=== PATIENT | female | born 1960 | race Caucasian/White ===

== ENCOUNTER 2016-08-22 12:53 | Observation (INO) | payer BC ==
[2016-08-22 13:52] LABS: Hematocrit 42.2 % (37.0-47.0); Hemoglobin 13.9 gm/dL (12.5-16.0); Mean Cell Volume 98.6 fl (78-100); Mean Corpuscular Hemoglobin 32.5 pg (27-31); Mean Corpuscular Hgb Conc 32.9 g/dl (32-36); Mean Platelet Volume 10.8 fl (6.0-9.5); Neutrophil # 6.4 K/mm3 (1.3-6.0); Neutrophil % 73.8 % (42-75.0); Platelet Count 393 K/mm3 (150-450); Red Blood Count 4.28 M/mm3 (4.2-5.4); Red Cell Distribution Width 12.7 % (11.5-14.0); White Blood Count 8.7 K/mm3 (4.0-10.5)
[2016-08-22 14:06] LABS: Albumin * 3.7 gm/dl (3.4-5.0); Anion Gap 12.4 mmol/L (6.8-13.8); BUN/Creatinine Ratio 14.3 (9.0-21.6); Bilirubin, Total 0.4 mg/dL (0.0-1.1); Ca. Corrected For Albumin 9.3 mg/dL (8.4-10.2); Calcium * 9.4 mg/dL (7.9-10.9); Potassium 4.4 mmol/L (3.4-4.6); Total Protein 7.6 gm/dL (6.2-8.2)
[2016-08-22] MEDS ORDERED: NORMAL SALINE 1,000 ML IV ONE ×2 (16:25→16:31)
[2016-08-22] MEDS ORDERED: PROMETHAZINE HCL 25 MG in DEXTROSE 5 % IN WATER 50 ML IV ONE ×2 (16:31)
[2016-08-22] MEDS ORDERED: DICYCLOMINE HCL 10 MG/ML AMPUL IM ONE ×2 (16:32→17:14)
--- NOTE | 2016-08-22 16:41 | ERNOTE ---
<Alesha Morrissey - Last Filed: 08/22/16 21:57> Medical Problem HPI - Narrative Date of Service: 08/22/16 - General Chief Complaint: Nausea/Vomiting Time Seen by Provider: 08/22/16 16:25 Source: patient Exam Limitations: no limitations - Immun/Allergies/Home Medications Immunizations: IMMUNIZATION HX Immunizations Up to Date Yes History of Influenza Vaccine No Hx Pneumococcal Vaccination No Allergies/Adverse Reactions: Allergies Sulfa (Sulfonamide Antibiotics) Allergy (Intermediate, Verified 08/22/16 13:19) Hives Home Medications: HOME MEDICATIONS Atenolol [Tenormin] 25 mg PO DAILY 07/24/13 [Last Taken Unknown] Diclofenac Sodium [Voltaren] 75 mg PO BID 08/22/16 [Last Taken Unknown] Duloxetine HCl [Cymbalta] 30 mg PO DAILY 08/22/16 [Last Taken Unknown] Gabapentin [Neurontin] 300 mg PO HS 08/22/16 [Last Taken Unknown] - History of Present History Narrative: Pt. comes in with c/o BLQ pain and nausea and vomiting along with dry heaving for one day. Pt. states that she has had these symptoms recently as far back as 2 weeks but it has been intermittent but now is constant. Pt. states that she tried her chronic pain medications for the pain without relief. Pt. denies any fevers, SOB, CP, alleviating factors, or aggravating factors. Review of Systems - Review of Systems Constitutional: Present: fatigue. Absent: fever, chills, weakness, malaise EYE: Present: no symptoms reported ENT: Present: no symptoms reported Respiratory: Present: no symptoms reported. Absent: shortness of breath, cough , wheezing Cardiology: Present: no symptoms reported Gastrointestinal/Abdominal: Present: nausea, vomiting, diarrhea, abdominal pain Genitourinary: Present: no symptoms reported. Absent: frequency, decreased urinary output Musculoskeletal: Present: no symptoms reported. Absent: back pain, joint pain Skin: Present: no symptoms reported. Absent: rash, change in color Neurological: Present: no symptoms reported. Absent: headache, dizziness/light- headedness, numbness, tingling All Other Systems: All systems neg except as marked - Patient's Past Medical History Patient History - Medical: Anxiety, Depression, Fibromyalgia, Migraines, Osteoarthritis Patient History - Cancer: No Hx of Cancer Patient History - Surgical Procedures: Appendectomy, Cholecystectomy, Total Knee Replacement LMP (females 10-50): Menopausal - Social History Living Situations: home Smoking Status: Never smoker Alcohol Use: none Drug Use: none Physical Exam - Physical Exam General Appearance: Present: wd/wn, alert, no apparent distress Eye Exam: Normal inspection: bilateral, PERRL: bilateral, EOMI: bilateral Ears, Nose, Throat: Present: normal ENT inspection, hearing grossly normal, normal pharynx Neck: Present: normal inspection, nontender. Absent: lymphadenopathy (R), lymphadenopathy (L) Respiratory: Present: no respiratory distress, normal breath sounds, no accessory muscle use, chest nontender, lungs clear Cardiovascular/Chest: Present: regular rate, rhythm, no murmur, normal peripheral pulses Gastrointestinal/Abdominal: Present: normal bowel sounds, nontender, nondistended, soft, no organomegaly Back Exam: Present: normal inspection, normal range of motion, no CVA tenderness , no vertebral tenderness Extremity Exam: Present: normal inspection, non-tender, no edema, normal range of motion Neurological Exam: Present: alert, oriented, normal mood/affect, no motor/ sensory deficits, duplicating machine servicer II-XII nml as tested, normal cerebellar test Skin Exam: Present: normal color, warm/dry. Absent: pallor, skin rash ED Progress - Results and Orders Patient's Lab Results:: I have reviewed the patient's lab results. - Vital Signs Patient's Vital Signs:: I have reviewed the patient's vital signs. Vital Signs: Vital Signs 08/22/16 13:12 Temperature 36.8 C Pulse Rate 79 Respiratory 16 Rate Blood Pressure 152/97 O2 Sat by Pulse 95 Oximetry - X-Ray X-Ray #1 X-Ray: abdomen Interpretation: Interp. by co X-ray Comments: no obstruction no free air small bowel rugae prominent - Progress/Reassessment Chief Complaint: Nausea/Vomiting Progress:: Unchanged - Transfer of Care Physician Sign Out: Alesha Morrissey Receiving Physician: Eduardo Camacho Pending Results: CT/MRI results Expected Disposition: Discharge Departure - Departure Clinical Impression: Dehydration, Acute gastroenteritis, Acute colitis, UTI (urinary tract infection ) with pyuria UTI (urinary tract infection) Qualifiers: Urinary tract infection type: acute cystitis Hematuria presence: with hematuria Qualified Code(s): N30.01 - Acute cystitis with hematuria UTI (urinary tract infection) Qualifiers: Urinary tract infection type: acute cystitis Hematuria presence: with hematuria Qualified Code(s): N30.01 - Acute cystitis with hematuria UTI (urinary tract infection) Qualifiers: Urinary tract infection type: acute cystitis Hematuria presence: with hematuria Qualified Code(s): N30.01 - Acute cystitis with hematuria Disposition: [facility] Condition: Fair Instructions: Colitis Referrals: Mike Palafox DO [Primary Care Provider] - <Eduardo Camacho - Last Filed: 08/23/16 01:26> Medical Problem HPI - Immun/Allergies/Home Medications Immunizations: IMMUNIZATION HX Immunizations Up to Date Yes History of Influenza Vaccine No Hx Pneumococcal Vaccination No ED Progress - Vital Signs Vital Signs: Vital Signs 08/22/16 08/22/16 08/23/16 19:28 20:47 00:19 Temperature 36.8 C Pulse Rate 78 78 85 Respiratory 16 16 14 Rate Blood Pressure 186/87 149/70 131/64 O2 Sat by Pulse 99 100 98 Oximetry - CT/Ultrasound CT/Ultrasound Narrative: CT abd/pelvis with IV and po contrast: transverse and sigmoid inflammation consistent with infectious colitis or IBD. Atrophic R kidney and enlarged left kidney. - Progress/Reassessment Progress:: Improved - 0100 Plan - Plan Plan: Admit to acute, IV steroids, Cipro and Flagyl. NPO. IVF. discussed CT results with patient. Advised [place] of plan.
[2016-08-22 17:29] LABS: Urine Appearance Slightly Cloudy; Urine Bilirubin Negative (NEGATIVE); Urine Color Yellow
[2016-08-22 17:30] LABS: Urine Nitrite Positive (NEGATIVE); Urine Protein Negative (NEGATIVE); Urine Urobilinogen Normal (NORMAL)
[2016-08-22 17:31] LABS: Urine Bacteria 4+; Urine Blood 50 /ul (NEGATIVE); Urine Ketone 5 mg/dL (NEGATIVE); Urine RBC 0-5 /hpf (0-5)
[2016-08-22] MEDS ORDERED: DIATRIZOATE MEGLU/DIATRIZO SOD 30 ML BTL PO ONE (21:57)
[2016-08-22] MEDS ORDERED: DIATRIZOATE MEGLU/DIATRIZO SOD 30 ML BTL ONE (21:58)
[2016-08-22 22:13] LABS: Hemoglobin 13.5 gm/dL (12.5-16.0)
[2016-08-22 22:23] LABS: Prothrombin Time (Patient) 10.4 Seconds (9.4-11.4)
[2016-08-22 22:24] LABS: Partial Thrombolplastin Time 25.1 Seconds (24-32)
[2016-08-23] MEDS ORDERED: METHYLPREDNISOLONE SOD SUCC/PF 40 MG/ML VIAL IV ONE (01:13)
[2016-08-23] MEDS: CIPROFLOXACIN LACTATE/D5W 400 MG/200 ML BAG IV SCH ×3 (01:46→14:37)
--- NOTE | 2016-08-23 03:14 | HP ---
Chief Complaint - Chief Complaint Date of Service: 08/23/16 Time of Service: 03:13 Chief Complaint: diarrhea History of Present Illness: Pt is a 56 year old female pt of Dr. Palafox with PMH significant for: fibromyalgia, depression, migranes, HTN, and anxiety. Who started having loose stool 2 weeks ago. She states since then she has had maybe 2 formed stool. They have been brown in color without evidence of any bleeding noted. She has been having mid-epigastric pain which comes and goes and feels like someone is twisting her insides. She rates this a 9/10, pain is usually worse before a BM followed by an immediate urgency to have a BM, then the pain is relived for a little while. Has not been taking anything for it at home, thought that she just had the stomach virus. Daughter and grandson + with influenza B. +nausea, dry heaves all day today. While being seen in the ER had a BM with maroon colored blood, +occult blood. Denies ever having anything like this before. + chills, no fevers report. Denies cough, lightheadedness, palpations, CP, sore throat, or SOB. CT abdomen in the ER showed transverse and sigmoid inflammation consistent with IBD or infectious colitis. Atrophic right kidney and enlarged left kidney. Laboratory findings were as followed: h/h 13.5/41, K+4.4, WBC 8.7, Na+144, chloride 107, BUN/Creat 21/1.47, UA +-culture pending, c-diff negative. She will be admitted to in patient for GIB due to gastritis and UTI requiring IV steroids and IV antibiotics. - Patient's Past Medical History Patient History - Medical: Anxiety, Depression, Fibromyalgia, Migraines, Osteoarthritis Patient History - Cardiac/Respiratory: Hypertension Patient History - Cancer: No Hx of Cancer Patient History - Surgical Procedures: Appendectomy, Cholecystectomy, Other - bariatic sleeve-2014 Patient History - Other: None LMP (females 10-50): Menopausal - Family History Father Family History - Medical: Family History - Cardiac/Respiratory: No pertinent hx Family History - Cancer: Prostate Mother Family History - Medical: , Dementia Family History - Cardiac/Respiratory: No pertinent hx Family History - Cancer: Throat, Other - tongue Grandfather-Paternal Family History - Medical: Family History - Cardiac/Respiratory: Myocardial Infarction Grandfather-Maternal Family History - Cardiac/Respiratory: Myocardial Infarction - Social History Living Situations: spouse Does anyone smoke in the home?: No Smoking Status: Never smoker Have you smoked in the past 12 months: No Do you dip or chew tobacco: No Patient requests Smoking Cessation Consult: No Initiate information on Smoking Cessation: No Alcohol Use: none Drug Use: none - Immunizations Immunizations Up to Date: Yes Hx Pneumococcal Vaccination: No History of Influenza Vaccine: No Review Of Systems (GEN) - Review of Systems Generalized/Overall Review: Present: No Symptoms Reported EENTM: Present: No Symptoms Reported Respiratory: Present: No Symptoms Reported Cardiac: Present: No Symptoms Reported Abdominal: Present: Abdominal Pain - cramping-mid epigastric Genitourinary: Present: No Symptoms Reported Musculoskeletal: Present: No Symptoms Reported Neurological: Present: No Symptoms Reported Skin: Present: No Symptoms Reported Allergies/Adverse Reactions: Allergies Allergy/AdvReac Type Severity Reaction Status Date / Time Sulfa (Sulfonamide Allergy Intermediate Hives Verified 08/23/16 02:57 Antibiotics) Home Medications: HOME MEDICATIONS Atenolol [Tenormin] 25 mg PO DAILY 07/24/13 [Last Taken Unknown] Diclofenac Sodium [Voltaren] 75 mg PO BID 08/22/16 [Last Taken Unknown] Duloxetine HCl [Cymbalta] 30 mg PO DAILY 08/22/16 [Last Taken Unknown] Gabapentin [Neurontin] 300 mg PO HS 08/22/16 [Last Taken Unknown] Cyanocobalamin (Vitamin B-12) [B-12] 1,000 mcg PO DAILY 08/23/16 [Last Taken Unknown] Multivitamin [One Daily Essential] 1 each PO DAILY 08/23/16 [Last Taken Unknown] Exam - Exam Vital Signs: Vital Signs - Last Taken Temp 37.0 C 08/23/16 02:44 Pulse 89 08/23/16 02:44 Resp 18 08/23/16 02:44 BP 142/71 08/23/16 02:44 Pulse Ox 96 RA 08/23/16 02:44 Constitutional: Present: Alert, Oriented x3, Cooperative, No distress ENT Exam: Present: normal ENT inspection, hearing grossly normal Eye Exam: bilateral eye: normal inspection, PERRL Back Exam: Present: normal inspection Respiratory: Present: chest non-tender, normal breath sounds, no respiratory distress, no accessory muscle use, decreased breath sounds Cardiovascular/Chest: Present: normal peripheral pulses, regular rate, rhythm, no chest tenderness, no edema, no murmur Peripheral Pulses: dorsalis-pedis (R): 2+, dorsalis-pedis (L): 2+, radial (R): 2 +, radial (L): 2+ Abdomen: Present: Normal bowel sounds, soft, nontender, nondistended, no rebound tenderness, no hepatospenomegaly, no masses Extremity: Present: normal range of motion, non-tender, normal inspection, no pedal edema, no calf tenderness, normal capillary refill Skin Exam: Present: normal color, warm/dry, no cyanosis Lymphatic: Present: no adenopathy Neurologic: Present: no motor/sensory deficits, alert, normal mood/affect, oriented x 3 Appearance: Present: appropriate appearance, appropriate insight, neat, no memory impairment Eye contact: Present: cooperative, good eye contact, normal speech Thoughts: Present: normal thought pattern, no apparent hallucination Diagnostic Studies: Laboratory Results Laboratory Tests 08/22/16 08/22/16 08/22/16 13:48 13:48 17:17 WBC 8.7 Hgb 13.9 Hct 42.2 Plt Count 393 PT INR (Anticoag Therapy) PTT (Lynn) Sodium 144 H Potassium 4.4 Chloride 107 H Anion Gap 12.4 BUN 21 D Creatinine 1.47 H Est GFR (Non-Af Amer) 39 L D Calcium 9.4 Total Bilirubin 0.4 AST 22 ALT 24 Alkaline Phosphatase 101 Total Protein 7.6 Albumin 3.7 Urine Blood 50 H Urine Nitrate Positive H Ur Leukocyte Esterase 25 H Urine WBC 5-10 H Urine Bacteria 4+ H Stool Occult Blood Stl C.difficile Tox A&B 08/22/16 08/22/16 08/22/16 20:40 20:40 22:05 WBC Hgb Hct Plt Count PT 10.4 INR (Anticoag Therapy) 1.00 PTT (Ele) 25.1 Sodium Potassium Chloride Anion Gap BUN Creatinine Est GFR (Non-Af Amer) Calcium Total Bilirubin AST ALT Alkaline Phosphatase Total Protein Albumin Urine Blood Urine Nitrate Ur Leukocyte Esterase Urine WBC Urine Bacteria Stool Occult Blood Positive H Stl C.difficile Tox A&B Negative Assessment/Plan - Assessment/Plan (1) Acute colitis Assessment: Pt with 2 week history of diarrhea. Denies fever/chills, no evidence on leukocytosis on chemistries, will withhold on PO antibiotics as this does not appear to be infectious colitis at this time. Will keep NPO for bowel rest and hydrate overnight. If remains without n/v can trial CL tomorrow. -Solumedrol 60mg Q6H -NPO -MIVF D5.45@125ml/hr -Stool for ova and parasites -CRP/ESR, procalcitonin in am -CMP/CBC in am Problem: Acute (2) Dehydration Assessment: Volume depletion causing MEETA related to 2 week history of diarrhea. Will repeat labs in the am. Provide IV hydration, limit nephrotoxic drugs. -D5.45 @125ml/hr -CMP in am Problem: Acute (3) UTI (urinary tract infection) Assessment: Urine culture pending -Cipro 400mg Q12H Problem: Acute Qualifiers: Urinary tract infection type: acute cystitis Hematuria presence: with hematuria Qualified Code(s): N30.01 - Acute cystitis with hematuria (4) GIB (gastrointestinal bleeding) Assessment: +occult stool in ER, most likely the result from inflammation and colitis in the GI tract. ERMD spoke with Dr. Rock. If h/h drops or pt continues to bleed will consider scope for further evaluation. I suspect that once we treat her colitis with steroids and GI rest the bleeding should resolve. C-Diff negative. -Protonix 40mg IV Q24H -NPO -MIVF d5.45 @125ml.hr -Hold Voltaren Problem: Acute (5) HTN (hypertension) Assessment: Stable -Continue Atenolol 25mg QD Problem: Chronic
[2016-08-23] MEDS ORDERED: ONDANSETRON HCL/PF 2 MG/ML VIAL IV PRN (03:19)
[2016-08-23] MEDS ORDERED: METHYLPREDNISOLONE SOD SUCC 60 MG in WATER FOR INJ.,BACTERIOSTATIC 0 ML IV SCH (03:30)
[2016-08-23] MEDS ORDERED: PANTOPRAZOLE SODIUM 40 MG in NORMAL SALINE 100 ML IV SCH (03:30)
[2016-08-23] MEDS: DEXTROSE 5%-0.5 NORMAL SALINE 1,000 ML IV PRN ×3 (03:57→22:22)
[2016-08-23] MEDS: PANTOPRAZOLE SODIUM 40 MG in NORMAL SALINE 100 ML IV SCH (03:57)
[2016-08-23 06:20] LABS: Hematocrit 38.8 % (37.0-47.0); Hemoglobin 12.9 gm/dL (12.5-16.0); Mean Cell Volume 98.2 fl (78-100); Mean Corpuscular Hemoglobin 32.7 pg (27-31); Mean Corpuscular Hgb Conc 33.2 g/dl (32-36); Mean Platelet Volume 10.9 fl (6.0-9.5); Neutrophil # 7.2 K/mm3 (1.3-6.0); Neutrophil % 88.2 % (42-75.0); Platelet Count 337 K/mm3 (150-450); Red Blood Count 3.95 M/mm3 (4.2-5.4); Red Cell Distribution Width 12.7 % (11.5-14.0); White Blood Count 8.2 K/mm3 (4.0-10.5)
[2016-08-23 06:28] LABS: Prothrombin Time (Patient) 10.5 Seconds (9.4-11.4)
[2016-08-23 06:31] LABS: Albumin * 3.2 gm/dl (3.4-5.0); Anion Gap 12.7 mmol/L (6.8-13.8); BUN/Creatinine Ratio 9.7 (9.0-21.6); Bilirubin, Total 0.3 mg/dL (0.0-1.1); CRP 2.6 mg/dL (0.0-0.9); Calcium * 8.7 mg/dL (7.9-10.9); Carbon Dioxide 25.4 mmol/L (24-32.6); Potassium 4.1 mmol/L (3.4-4.6); Total Protein 6.8 gm/dL (6.2-8.2)
[2016-08-23 06:36] LABS: INR 1.01 INR (0.90-1.10); Partial Thrombolplastin Time 27.2 Seconds (24-32)
[2016-08-23] MEDS ORDERED: METHYLPREDNISOLONE SOD SUCC/PF 125 MG/2 ML VIAL IV SCH (08:00)
[2016-08-23] MEDS: METHYLPREDNISOLONE SOD SUCC 60 MG in WATER FOR INJ.,BACTERIOSTATIC 0 ML IV SCH ×3 (08:41→20:21)
[2016-08-23] MEDS: ATENOLOL 25 MG TABLET PO SCH (08:42)
[2016-08-23] MEDS: DULoxetine HCL 30 MG CAPSULE.SA PO SCH (08:42)
[2016-08-23] MEDS: CYANOCOBALAMIN 1,000 MCG TABLET PO SCH (08:42)
[2016-08-23] MEDS: MULTIVITAMINS 1 CAP CAPSULE PO SCH (08:42)
[2016-08-23] MEDS ORDERED: FLU VACC QS2016-17 36MOS UP/PF 60 MCG/0.5 ML DISP.SYRIN IM ONE (09:00)
[2016-08-23] MEDS ORDERED: GABAPENTIN 300 MG CAPSULE PO SCH (21:00)
[2016-08-24] MEDS: CIPROFLOXACIN LACTATE/D5W 400 MG/200 ML BAG IV SCH (02:20)
[2016-08-24] MEDS: DEXTROSE 5%-0.5 NORMAL SALINE 1,000 ML IV PRN (07:30)
[2016-08-24] MEDS: PANTOPRAZOLE SODIUM 40 MG in NORMAL SALINE 100 ML IV SCH (08:58)
[2016-08-24] MEDS: ATENOLOL 25 MG TABLET PO SCH (08:58)
[2016-08-24] MEDS: MULTIVITAMINS 1 CAP CAPSULE PO SCH (08:59)
[2016-08-24] MEDS: CYANOCOBALAMIN 1,000 MCG TABLET PO SCH (08:59)
[2016-08-24] MEDS: DULoxetine HCL 30 MG CAPSULE.SA PO SCH (08:59)
[2016-08-24 10:04] LABS: Hematocrit 38.4 % (37.0-47.0); Hemoglobin 12.5 gm/dL (12.5-16.0); Mean Cell Volume 100.5 fl (78-100); Mean Corpuscular Hemoglobin 32.7 pg (27-31); Mean Corpuscular Hgb Conc 32.6 g/dl (32-36); Mean Platelet Volume 10.8 fl (6.0-9.5); Neutrophil # 14.2 K/mm3 (1.3-6.0); Neutrophil % 86.4 % (42-75.0); Platelet Count 354 K/mm3 (150-450); Red Blood Count 3.82 M/mm3 (4.2-5.4); White Blood Count 16.4 K/mm3 (4.0-10.5)
[2016-08-24 10:20] LABS: Anion Gap 13.1 mmol/L (6.8-13.8); BUN/Creatinine Ratio 11.4 (9.0-21.6); Bilirubin, Total 0.2 mg/dL (0.0-1.1); Ca. Corrected For Albumin 9.3 mg/dL (8.4-10.2); Calcium * 8.8 mg/dL (7.9-10.9); Carbon Dioxide 24.6 mmol/L (24-32.6); Potassium 3.7 mmol/L (3.4-4.6); Total Protein 6.5 gm/dL (6.2-8.2)
[2016-08-24 10:49] VITALS: BP 142/76
--- NOTE | 2016-08-24 11:52 | DS ---
(1) Acute gastroenteritis Diagnosis(s): Rosey is a 56 yo female admitted with abdominal pain with hemoccult positive. She was admitted for possible GI bleed. She was made NPO and started on PPI. CT was performed which showed colitis. UA was positive for UTI. She was started on Ciprofloxacin for UTI and possible colitis. Hemoglobin was monitored and stable. She had no further bloody stools. She is feeling much better and will be discharged to home. Suspect she has acute gastritis vs gastroenteritis. Will treat with PPI and will continue Cipro for colitis and UTI. Problem: Acute (2) UTI (urinary tract infection) Problem: Acute Qualifiers: Urinary tract infection type: acute cystitis Hematuria presence: with hematuria Qualified Code(s): N30.01 - Acute cystitis with hematuria Procedures Performed: none Discharge Disposition: Home self care Disposition: Home self-care Condition: Good Discharge Activity: Activity as tolerated Discharge Diet: General/regular food Referrals: Mike Palafox DO [Primary Care Provider] - One Week Problem Oriented Discharge Instructions to Patient/Family: Gastritis, Adult, [id number], Urinary Tract Infection, Adult, [id number], Colitis Additional Patient Instructions (free text): Do not take any NSAIDs due to gastritis, gastrointestinal bleed. Specifically do not take aspirin, aleve, ibuprofen, prednisone, meloxicam, or diclofenac. Follow up with Dr. Palafox on 08-31-16 @ 2:00 pm. Prescriptions (Any new or edited meds): Ciprofloxacin HCl [Cipro] 500 mg PO BID #10 tab Pantoprazole Sodium [Protonix] 40 mg PO DAILY #30 [email or web address] Complete Home Medications List: Complete Home Medication List: Atenolol [Tenormin] 25 mg PO DAILY 07/24/13 Duloxetine HCl [Cymbalta] 30 mg PO DAILY 08/22/16 Gabapentin [Neurontin] 300 mg PO HS 08/22/16 Cyanocobalamin (Vitamin B-12) [B-12] 1,000 mcg PO DAILY 08/23/16 Multivitamin [One Daily Essential] 1 each PO DAILY 08/23/16 Ciprofloxacin HCl [Cipro] 500 mg PO BID #10 tab 08/24/16 Pantoprazole Sodium [Protonix] 40 mg PO DAILY #30 [email or web address].pkt 08/24/16
== END 2016-08-24 14:00 | disposition home or self-care (01) ==
LOC: ER 12:53 → INTOOBSV 08-23 01:18 → MS 08-23 01:18
PROVIDERS: ADMIT Nurse Practitioner Gerontology; ATTEND Family Medicine
DX: K52.9 Noninfective gastroenteritis and colitis, unspecified (principal); N30.01 Acute cystitis with hematuria; E86.0 Dehydration; F41.8 Other specified anxiety disorders; I10 Essential (primary) hypertension; M79.7 Fibromyalgia; M19.90 Unspecified osteoarthritis, unspecified site; Z90.49 Acquired absence of other specified parts of digestive tract; Z23 Encounter for immunization
CPT/HCPCS: 36415; 74020; 74177; 80053; 81001; 82272; 84145; 85014; 85018; 85025; 85610; 85652; 85730; 86140; 87045; 87046; 87086; 87177; 87209; 87493; 90471; 90686; 96361; 96372; 96374; 96375; 99284; G0378

== ENCOUNTER 2017-02-18 11:26 | Day surgery (SDC) | payer BC ==
[~2017-02-18 11:26] MED LIST: ACETAMINOPHEN WITH CODEINE 1 EACH TABLET PO PRN; KETOROLAC TROMETHAMINE 15 MG/ML VIAL IV PRN; MORPHINE SULFATE 2 MG/ML DISP.SYRIN IV PRN; ONDANSETRON HCL/PF 2 MG/ML VIAL IV PRN; OXYBUTYNIN CHLORIDE 5 MG TABLET PO PRN; RINGERS SOLUTION,LACTATED 1,000 ML IV PRN; ceFAZolin SODIUM 2 GM in DEXTROSE 5 % IN WATER 50 ML IV PRN; oxyCODONE HCL/ACETAMINOPHEN 1 TAB TABLET PO PRN
--- OUTSIDE RECORDS SUMMARY | 2017-02-18 11:30 | XMS REPORT | Summary of Care ---
:1960 Author Organization [facility] Address [address] [place] [address] Care Team Providers Name Role Phone Mike Palafox Primary Care Physician Encounter Date(s): 10/15/16 - 10/15/16 [facility] [address], [address] [place], [place] [address] [place] Discharge Disposition: 01 Discharged to Home or Self Care Attending Physician: Torsten Maxwell MD Referring Physician: Torsten Maxwell MD Vital Signs No data available for this section Problem List Condition Effective Dates Status Health Status Informant Benign hypertension(Confirmed) 02/09/08 Active Depressive disorder NEC(Confirmed) Active Long-Term (Current) Use of Other Active Medications(Confirmed) Hypoglycemia(Confirmed) Active ophthalmic migraines(Confirmed) Active Allergies, Adverse Reactions, Alerts Substance Reaction Severity Status sulfa drugs Rash Moderate Active Medications Advil Migraine 400 mg, Oral, q6hr interval, PRN as needed for migraine headache, 0 Refill(s), Start Date: 07/10/14 11:13:00 ELIGIBILITY EXAMINER Start Date: 07/10/14 Stop Date: 08/18/16 Status: Completedatenolol 50 mg oral tablet 1 tab(s), Oral, Daily, 0 Refill(s), Start Date: 01/15/14 9:57:00 CDT Start Date: 01/15/14 Status: Ordereddiclofenac sodium 75 mg oral delayed release tablet 1 tab(s), Oral, BID, with food, # 60 tab(s), 6 Refill(s), Start Date: 05/27/16 15:56:00 CDT, Pharmacy: [facility] Special Instructions: with food Start Date: 05/27/16 Stop Date: 09/13/16 Status: CompletedDME - [employer] See Instructions, Diagnosis Code: Length of Need: , # 1 EA, 0 Refill(s), 05/15/14 14:18:00 CDT, other reason (Rx), Supply Special Instructions: Diagnosis Code: Length of Need: Start Date: 05/15/14 Stop Date: 07/19/14 Status: DiscontinuedDULoxetine 30 mg oral delayed release capsule 1 cap(s), Oral, Daily, do not crush or chew, # 30 cap(s), 0 Refill(s), Start Date: 09/13/16 9:00:00 ELIGIBILITY EXAMINER Special Instructions: do not crush or chew Start Date: 09/13/16 Status: OrderedEffexor XR 75 mg oral capsule, extended release 3 cap(s), Oral, HS, 0 Refill(s), Start Date: 01/15/14 9:57:00 CDT Start Date: 01/15/14 Stop Date: 09/13/16 Status: Completedesomeprazole 40 mg oral delayed release capsule 1 cap(s), Oral, Daily, on an empty stomach, 0 Refill(s) Special Instructions: on an empty stomach Start Date: 01/15/14 Stop Date: 04/26/14 Status: Discontinuedgabapentin 300 mg oral capsule 1 cap(s), Oral, HS, # 30 cap(s), 1 Refill(s), Start Date: 08/18/16 15:25:00 ELIGIBILITY EXAMINER , Pharmacy: [id number] Start Date: 08/18/16 Status: Orderedibuprofen 800 mg oral tablet 1 tab(s), Oral, TID, # 90 tab(s), 0 Refill(s), Pharmacy: [id number] Start Date: 05/08/14 Stop Date: 07/19/14 Status: Discontinuedibuprofen 800 mg oral tablet 1 tab(s), Oral, q8hr interval, # 60 tab(s), 0 Refill(s), Start Date: 01/27/15 8: 52:07 CDT, Pharmacy: [id number] Start Date: 01/27/15 Stop Date: 08/18/16 Status: Completedibuprofen 800 mg oral tablet 1 tab(s), Oral, q8hr interval, # 60 tab(s), 0 Refill(s), Start Date: 09/09/14 7: 40:00 ELIGIBILITY EXAMINER, Pharmacy: [id number] Start Date: 09/09/14 Stop Date: 01/27/15 Status: DiscontinuedImitrex 50 mg oral tablet See Instructions, take 2 tablet (100MG) by ORAL route x 1 dose with fluids as early as possible after the onset of a migrain e attack; if headache returns, the dose may be repeated after 2 hours, notto exceed a total daily dose of 200mg , 0 Refill(s) Special Instructions: take 2 tablet (100MG) by ORAL route x 1 dose with fluids as early as possible after the onset of a migrain e attack; if headache returns , the dose may be repeated after 2 hours,not to exceed a total daily dose of 200mg Start Date: 01/15/14 Stop Date: 07/10/14 Status: CompletedKeflex 500 mg oral capsule 1 cap(s), Oral, q12hr, # 6 cap(s), 0 Refill(s), Pharmacy: [id number] Start Date: 04/30/14 Stop Date: 05/15/14 Status: CompletedLORazepam 0.5 mg oral tablet 1 tab(s), Oral, TID, 0 Refill(s) Start Date: 01/15/14 Stop Date: 04/26/14 Status: DiscontinuedMultiple Vitamins oral capsule 1 cap(s), Oral, BID, Start Date: 08/22/14 15:01:00 ELIGIBILITY EXAMINER Start Date: 08/22/14 Status: OrderedNitro-Dur 0.1 mg/hr transdermal film, extended release patch(es), TD, Daily, maintain a nitrate-free interval of 10 to 12 hours, 0 Refill(s) Special Instructions: maintain a nitrate-free interval of 10 to 12 hours Start Date: 01/15/14 Stop Date: 04/26/14 Status: DiscontinuedNorco 5 mg-325 mg oral tablet 1-2 tab(s), Oral, q4hr, PRN pain mild 1-3, # 30 tab(s), 0 Refill(s), Start Date : 07/19/14 16:24:00 ELIGIBILITY EXAMINER Start Date: 07/19/14 Stop Date: 08/09/14 Status: Completedomeprazole 40 mg oral delayed release capsule 1 cap(s), Oral, HS, # 30 cap(s), 0 Refill(s), Start Date: 04/26/14 11:36:00 CDT Start Date: 04/26/14 Stop Date: 08/18/16 Status: Completedpantoprazole 40 mg oral delayed release tablet 1 tab(s), Oral, Daily, # 30 tab(s), 0 Refill(s), Start Date: 09/13/16 8:59:00 ELIGIBILITY EXAMINER Start Date: 09/13/16 Status: OrderedPercocet 5/325 oral tablet 1 tab(s), Oral, q4hr, X 14 days, # 84 tab(s), 0 Refill(s), NADIA Start Date: 04/30/14 Stop Date: 05/14/14 Status: CompletedPrevacid 0 Refill(s) Start Date: 01/15/14 Stop Date: 04/26/14 Status: DiscontinuedtraMADol 50 mg oral tablet 1 tab(s), Oral, BID, # 60 tab(s), 0 Refill(s), Start Date: 09/13/16 9:25:00 ELIGIBILITY EXAMINER , called to pharmacy (Rx) Start Date: 09/13/16 Status: OrderedTylenol 8 HR Arthritis Pain 650 mg oral tablet, extended release 2 tab(s), Oral, BID, 0 Refill(s), Start Date: 09/13/16 9:23:00 ELIGIBILITY EXAMINER Start Date: 09/13/16 Status: Orderedvenlafaxine 225 mg oral tablet, extended release See Instructions, take 1 tablet (225MG) by oral route every day in the morning at the same time each day with food, 0 Refill(s) Special Instructions: take 1 tablet (225MG) by oral route every day in the morning at the same time each day with food Start Date: 01/15/14 Stop Date: 04/26/14 Status: DiscontinuedVitamin B12 1 tablet, Oral, Start Date: 08/22/14 15:00:00 ELIGIBILITY EXAMINER Start Date: 08/22/14 Status: Ordered Results No data available for this section Immunizations Vaccine Date Refusal Reason pneumococcal 23-polyvalent vaccine 05/15/03 Procedures Procedure Date Related Diagnosis Body Site Arthroscopy Knee (Left)1 09/20/16 Sleeve Gastrectomy (SCIP)2 07/17/14 Repair Achilles Tendon (Right, Heel R)3 04/30/14 Lreft knee arthroscopy4 1999 Appendectomy 1984 Cholecystectomy 1984 Tonsillectomy and adenoidectomy 1971 1auto-populated from documented surgical [id number] from documented surgical [id number] from documented surgical [id number] left Social History No data available for this section Assessment and Plan No data available for this section
--- OUTSIDE RECORDS SUMMARY | 2017-02-18 11:30 | XMS REPORT | Summary of Care ---
:1960 Author Organization [facility] Address [address] [place] [address] Care Team Providers Name Role Phone Mike Palafox Primary Care Physician Encounter Date(s): 11/26/16 - 11/26/16 [facility] Maci Hand, [address] [place], [place] [address] Discharge Disposition: 01 Discharged to Home or Self Care Attending Physician: RUBA Alvarez Referring Physician: Ravi Duenas MD Vital Signs Most recent to oldest [Reference Range]: 1 Peripheral Pulse Rate [60-100 bpm] 68 bpm (11/26/16 2:24 PM) Blood Pressure [90-130/60-90 mmHg] 120/73mmHg (11/26/16 2:24 PM) Mean Arterial Pressure, Cuff 89 mmHg (11/26/16 2:24 PM) Most recent to oldest [Reference Range]: 1 Height/Length Measured 158 cm (11/26/16 2:24 PM) Weight Dosing 108.00 kg1 (11/26/16 2:25 PM) Weight Measured 108 kg (11/26/16 2:24 PM) BSA Measured 2.06 m2 (11/26/16 2:24 PM) Body Mass Index Measured 43.26 kg/m2 (11/26/16 2:24 PM) 1Result Comment: This result was because the dosing weight was either not entered or it is>30 days old. This result is based off: Weight Measured November 26, 2016 14:24:00 CDT by Celena Acosta CMA Problem List Condition Effective Dates Status Health Status Informant Benign hypertension(Confirmed) 02/09/08 Active Depressive disorder NEC(Confirmed) Active Long-Term (Current) Use of Other Active Medications(Confirmed) Hypoglycemia(Confirmed) Active ophthalmic migraines(Confirmed) Active Allergies, Adverse Reactions, Alerts Substance Reaction Severity Status Pennsaid skin blisters Mild Active sulfa drugs Rash Moderate Active Medications Advil Migraine 400 mg, Oral, q6hr interval, PRN as needed for migraine headache, 0 Refill(s), Start Date: 07/10/14 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 Start Date: 07/10/14 Stop Date: 08/18/16 Status: Completedamitriptyline 25 mg oral tablet 1 tab(s), Oral, TID, # 90 tab(s), 0 Refill(s), Start Date: 10/21/16 14:22:00 CDT Start Date: 10/21/16 Status: Orderedatenolol 50 mg oral tablet 1 tab(s), Oral, Daily, 0 Refill(s), Start Date: 01/15/14 9:57:00 CDT Start Date: 01/15/14 Status: Ordereddiclofenac sodium 75 mg oral delayed release tablet 1 tab(s), Oral, BID, with food, # 60 tab(s), 6 Refill(s), Start Date: 05/27/16 15:56:00 CDT, Pharmacy: [facility] Special Instructions: with food Start Date: 05/27/16 Stop Date: 09/13/16 Status: CompletedDME - [employer] See Instructions, Diagnosis Code: Length of Need: , # 1 EA, 0 Refill(s), 05/15/14 14:18:00 CDT, other reason (Rx), Supply Special Instructions: Diagnosis Code: Length of Need: Start Date: 05/15/14 Stop Date: 07/19/14 Status: DiscontinuedDULoxetine 30 mg oral delayed release capsule 2 cap(s), Oral, Daily, do not crush or chew, # 30 cap(s), 0 Refill(s), Start Date: 09/13/16 9:00:00 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 Special Instructions: do not crush or chew [...] cap(s), 1 Refill(s), Start Date: 08/18/16 15:25:00 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 , Pharmacy: [facility] [id number] Start Date: 08/18/16 Stop Date: 10/18/16 Status: Completedgabapentin 300 mg oral capsule 1 cap(s), Oral, HS, # 30 cap(s), 2 Refill(s), Start Date: 10/18/16 8:26:30 CDT, Pharmacy: [facility] [id number] Start Date: 10/18/16 Status: Orderedibuprofen 800 mg oral tablet 1 tab(s), Oral, TID, # 90 tab(s), 0 Refill(s), Pharmacy: [facility] [id number] Start Date: 05/08/14 Stop Date: 07/19/14 Status: Discontinuedibuprofen 800 mg oral tablet 1 tab(s), Oral, q8hr interval, # 60 tab(s), 0 Refill(s), Start Date: 01/27/15 8: 52:07 CDT, Pharmacy: [facility] [id number] Start Date: 01/27/15 Stop Date: 08/18/16 Status: Completedibuprofen 800 mg oral tablet 1 tab(s), Oral, q8hr interval, # 60 tab(s), 0 Refill(s), Start Date: 09/09/14 7: 40:00 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, Pharmacy: [facility] [id number] Start Date: 09/09/14 Stop Date: 01/27/15 Status: [...] q12hr, # 6 cap(s), 0 Refill(s), Pharmacy: [facility] [id number] Start Date: 04/30/14 Stop Date: 05/15/14 Status: CompletedLORazepam 0.5 mg oral tablet 1 tab(s), Oral, TID, 0 Refill(s) Start Date: 01/15/14 Stop Date: 04/26/14 Status: DiscontinuedMultiple Vitamins oral capsule 1 cap(s), Oral, BID, Start Date: 08/22/14 15:01:00 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 Start Date: 08/22/14 Status: OrderedNitro-Dur 0.1 mg/hr [...] 0 Refill(s), Start Date : 07/19/14 16:24:00 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 Start Date: 07/19/14 Stop Date: 08/09/14 Status: Completedomeprazole 40 mg oral delayed release capsule 1 cap(s), Oral, HS, # 30 cap(s), 0 Refill(s), Start Date: 04/26/14 11:36:00 CDT Start Date: 04/26/14 Stop Date: 08/18/16 Status: Completedpantoprazole 40 mg oral delayed release tablet 1 tab(s), Oral, Daily, # 30 tab(s), 0 Refill(s), Start Date: 09/13/16 8:59:00 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 Start Date: 09/13/16 Status: OrderedPercocet 5/325 oral tablet 1 tab(s), Oral, q4hr, X 14 days, # 84 tab(s), 0 Refill(s), NADIA Start Date: 04/30/14 Stop Date: 05/14/14 Status: CompletedPrevacid 0 Refill(s) Start Date: 01/15/14 Stop Date: 04/26/14 Status: DiscontinuedSUMAtriptan 100 mg oral tablet 1 tab(s), Oral, Daily, PRN for migraine headache, may repeat dose after 2 hours up to a maximum of 200 mg in 24 hours, # 18 tab(s), 0 Refill(s), Start Date: 14:24:00 CDT Special Instructions: may repeat dose after 2 hours up to a maximum of 200 mg in 24 hours Start Date: 10/21/16 Status: OrderedtraMADol 50 mg oral tablet 1 tab(s), Oral, BID, # 60 tab(s), 0 Refill(s), Start Date: 09/13/16 9:25:00 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 , called to pharmacy (Rx) Start Date: 09/13/16 Stop Date: 11/09/16 Status: CompletedtraMADol 50 mg oral tablet 1 tab(s), Oral, BID, # 60 tab(s), 0 Refill(s), Start Date: 11/09/16 11:41:49 CDT , called to pharmacy (Rx) Start Date: 11/09/16 Status: OrderedTylenol 8 HR Arthritis Pain 650 mg oral tablet, extended release 2 tab(s), Oral, BID, 0 Refill(s), Start Date: 09/13/16 9:23:00 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 Start Date: 09/13/16 Status: Orderedvenlafaxine 225 mg [...] 1 tablet, Oral, Start Date: 08/22/14 15:00:00 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 Start Date: 08/22/14 Status: Ordered Results No data available for this section Immunizations Vaccine Date Refusal Reason pneumococcal 23-polyvalent vaccine 05/15/03 Procedures Procedure Date Related Diagnosis Body Site Arthroscopy Knee (Left)1 09/20/16 Sleeve Gastrectomy (SCIP)2 07/17/14 Repair Achilles Tendon (Right, Heel R)3 04/30/14 Lreft knee arthroscopy4 1999 Appendectomy 1984 Cholecystectomy 1984 Tonsillectomy and adenoidectomy 1971 1auto-populated from documented surgical [id number] from documented surgical [id number] from documented surgical [id number] left Social History No data available for this section Assessment and Plan No data available for this section
--- OUTSIDE RECORDS SUMMARY | 2017-02-18 11:31 | XMS REPORT | Summary of Care ---
:1960 Author Organization [facility] Care Team Providers Name Role Phone Javy Mike Coyne Primary Care Physician Encounter Date(s): 11/17/16 - 01/01/17 [place] [id number] Final: Achilles tendinitis, right leg Final: Fibromyalgia Final: Other reduced mobility Final: Muscle weakness (generalized) Final: Unspecified abnormalities of gait and mobility Discharge Disposition: 01 Discharged to Home or Self Care Attending Physician: RUBA Alvarez Admitting Physician: RUBA Alvarez Vital Signs No data available for this [...] headache, 0 Refill(s), Start Date: 07/10/14 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 Start Date: 07/10/14 Stop Date: 08/18/16 Status: Completedamitriptyline 25 mg oral tablet 1 tab(s), Oral, TID, # 90 tab(s), 0 Refill(s), Start Date: 10/21/16 14:22:00 CDT Start Date: 10/21/16 Stop Date: 12/09/16 Status: Completedamitriptyline 50 mg oral tablet 1 tab(s), Oral, HS, 0 Refill(s), Start Date: 12/09/16 15:02:00 CDT Start Date: 12/09/16 Status: Orderedatenolol 50 mg oral tablet 1 tab(s), Oral, Daily, 0 Refill(s), Start Date: 01/15/14 9:57:00 CDT Start Date: 01/15/14 Status: Ordereddiclofenac sodium 75 mg oral delayed release tablet 1 tab(s), Oral, BID, with food, # 60 tab(s), 6 Refill(s), Start Date: 05/27/16 15:56:00 CDT, Pharmacy: [facility] [id number] Special Instructions: with food Start Date: 05/27/16 [...] cap(s), 0 Refill(s), Start Date: 09/13/16 9:00:00 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 Special Instructions: do not crush or chew [...] cap(s), 1 Refill(s), Start Date: 08/18/16 15:25:00 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 , Pharmacy: [facility] [id number] Start Date: 08/18/16 Stop Date: 10/18/16 Status: Completedgabapentin 300 mg oral capsule 1 cap(s), Oral, HS, # 90 cap(s), 0 Refill(s), Start Date: 12/22/16 16:17:19 CDT , Pharmacy: [facility] [place] [id number] Start Date: 12/22/16 Status: Orderedgabapentin 300 mg oral capsule 1 cap(s), Oral, HS, # 30 cap(s), 2 Refill(s), Start Date: 10/18/16 8:26:30 CDT, Pharmacy: [facility] [place] [id number] Start Date: 10/18/16 Stop Date: 12/22/16 Status: Completedibuprofen 800 mg oral tablet 1 tab(s), Oral, TID, # 90 tab(s), 0 Refill(s), Pharmacy: [facility] [place] [id number] Start Date: 05/08/14 Stop Date: 07/19/14 Status: Discontinuedibuprofen 800 mg oral tablet 1 tab(s), Oral, q8hr interval, # 60 tab(s), 0 Refill(s), Start Date: 01/27/15 8: 52:07 CDT, Pharmacy: [facility] [place] [id number] Start Date: 01/27/15 Stop Date: 08/18/16 Status: Completedibuprofen 800 mg oral tablet 1 tab(s), Oral, q8hr interval, # 60 tab(s), 0 Refill(s), Start Date: 09/09/14 7: 40:00 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, Pharmacy: [facility] [place] [id number] Start Date: 09/09/14 Stop Date: 01/27/15 Status: [...] q12hr, # 6 cap(s), 0 Refill(s), Pharmacy: [facility] [id number] Start Date: 04/30/14 Stop Date: 05/15/14 Status: CompletedLORazepam 0.5 mg oral tablet 1 tab(s), Oral, TID, 0 Refill(s) Start Date: 01/15/14 Stop Date: 04/26/14 Status: DiscontinuedMultiple Vitamins oral capsule 1 cap(s), Oral, BID, Start Date: 08/22/14 15:01:00 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 Start Date: 08/22/14 Status: OrderedNitro-Dur 0.1 mg/hr [...] 0 Refill(s), Start Date : 07/19/14 16:24:00 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 Start Date: 07/19/14 Stop Date: 08/09/14 Status: Completedomeprazole 40 mg oral delayed release capsule 1 cap(s), Oral, HS, # 30 cap(s), 0 Refill(s), Start Date: 04/26/14 11:36:00 CDT Start Date: 04/26/14 Stop Date: 08/18/16 Status: Completedpantoprazole 40 mg oral delayed release tablet 1 tab(s), Oral, Daily, # 30 tab(s), 0 Refill(s), Start Date: 09/13/16 8:59:00 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 Start Date: 09/13/16 Status: OrderedPercocet 5/325 oral [...] # 60 tab(s), 0 Refill(s), Start Date: 12/10/16 8:55:55 CDT , called to pharmacy (Rx) Start Date: 12/10/16 Status: OrderedtraMADol 50 mg oral tablet 1 tab(s), Oral, BID, # 60 tab(s), 0 Refill(s), Start Date: 09/13/16 9:25:00 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 , called to pharmacy (Rx) Start Date: 09/13/16 Stop Date: 11/09/16 Status: CompletedtraMADol 50 mg oral tablet 1 tab(s), Oral, BID, # 60 tab(s), 0 Refill(s), Start Date: 11/09/16 11:41:49 CDT , called to pharmacy (Rx) Start Date: 11/09/16 Stop Date: 12/10/16 Status: CompletedTylenol 8 HR Arthritis Pain 650 mg oral tablet, extended release 2 tab(s), Oral, BID, 0 Refill(s), Start Date: 09/13/16 9:23:00 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 Start Date: 09/13/16 Status: Orderedvenlafaxine 225 mg [...] 1 tablet, Oral, Start Date: 08/22/14 15:00:00 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 Start Date: 08/22/14 Status: Ordered Results No data available for this section Immunizations Vaccine Date Refusal Reason pneumococcal 23-polyvalent vaccine 05/15/03 Procedures Procedure Date Related Diagnosis Body Site Arthroscopy Knee (Left)1 09/20/16 Sleeve Gastrectomy (SCIP)2 07/17/14 Repair Achilles Tendon (Right, Heel R)3 04/30/14 Lreft knee arthroscopy4 1999 Appendectomy 1984 Cholecystectomy 1984 Tonsillectomy and adenoidectomy 1971 1auto-populated from documented surgical [id number] from documented surgical [id number] from documented surgical [id number] left Social History No data available for this section Assessment and Plan No data available for this section
--- OUTSIDE RECORDS SUMMARY | 2017-02-18 11:31 | XMS REPORT | Summary of Care ---
:1960 Author Organization [facility] Address [address] [place] [address] Care Team Providers Name Role Phone Mike Palafox Primary Care Physician Encounter Date(s): 09/30/16 - 09/30/16 [facility] Maci Hand, [address] [place], [place] [address] Discharge Diagnosis: Right Achilles tendinitis Discharge Disposition: 01 Discharged to Home or Self Care Attending Physician: Ravi Duenas MD Referring Physician: Ravi Duenas MD Vital Signs Most recent to oldest [Reference Range]: 1 Peripheral Pulse Rate [60-100 bpm] 76 bpm (09/30/16 8:13 AM) Blood Pressure [90-130/60-90 mmHg] 111/71mmHg (09/30/16 8:13 AM) Mean Arterial Pressure, Cuff 84 mmHg (09/30/16 8:13 AM) Most recent to oldest [Reference Range]: 1 Height/Length Estimated 158 cm (09/30/16 8:13 AM) Weight Estimated 109 kg (09/30/16 8:13 AM) BSA Estimated 2.19 m2 (09/30/16 8:13 AM) Body Mass Index Estimated 43.66 kg/m2 (09/30/16 8:13 AM) Problem List Condition Effective Dates Status Health Status Informant Benign hypertension(Confirmed) 02/09/08 Active Depressive disorder NEC(Confirmed) Active Long-Term (Current) Use of Other Active Medications(Confirmed) Hypoglycemia(Confirmed) Active ophthalmic migraines(Confirmed) Active Allergies, Adverse Reactions, Alerts Substance Reaction Severity Status sulfa drugs Rash Moderate Active Medications Advil Migraine 400 mg, Oral, q6hr interval, PRN as needed for migraine headache, 0 Refill(s), Start Date: 07/10/14 11:13:00 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 Start Date: 07/10/14 Stop Date: 08/18/16 Status: Completedatenolol 50 mg oral tablet 1 tab(s), Oral, Daily, 0 Refill(s), Start Date: 01/15/14 9:57:00 CDT Start Date: 01/15/14 Status: Ordereddiclofenac sodium 75 mg oral delayed release tablet 1 tab(s), Oral, BID, with food, # 60 tab(s), 6 Refill(s), Start Date: 05/27/16 15:56:00 CDT, Pharmacy: [facility] [id number] Special Instructions: with food Start Date: 05/27/16 [...] cap(s), 0 Refill(s), Start Date: 09/13/16 9:00:00 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 Special Instructions: do not crush or chew [...] cap(s), 1 Refill(s), Start Date: 08/18/16 15:25:00 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 , Pharmacy: [facility] you [facility]? [facility] [id number] Start Date: 08/18/16 Status: Orderedibuprofen 800 mg oral tablet 1 tab(s), Oral, TID, # 90 tab(s), 0 Refill(s), Pharmacy: [facility] How do you roll? [place] [address] Start Date: 05/08/14 Stop Date: 07/19/14 Status: Discontinuedibuprofen 800 mg oral tablet 1 tab(s), Oral, q8hr interval, # 60 tab(s), 0 Refill(s), Start Date: 01/27/15 8: 52:07 CDT, Pharmacy: [facility] How do you roll? 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 [place] [address] Start Date: 09/09/14 Stop Date: 01/27/15 Status: [...] q12hr, # 6 cap(s), 0 Refill(s), Pharmacy: [facility] How do you roll? [place] [address] Start Date: 04/30/14 Stop Date: 05/15/14 Status: CompletedLORazepam 0.5 mg oral tablet 1 tab(s), Oral, TID, 0 Refill(s) Start Date: 01/15/14 Stop Date: 04/26/14 Status: DiscontinuedMultiple Vitamins oral capsule 1 cap(s), Oral, BID, Start Date: 08/22/14 15:01:00 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 Start Date: 08/22/14 Status: OrderedNitro-Dur 0.1 mg/hr [...] 0 Refill(s), Start Date : 07/19/14 16:24:00 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 Start Date: 07/19/14 Stop Date: 08/09/14 Status: Completedomeprazole 40 mg oral delayed release capsule 1 cap(s), Oral, HS, # 30 cap(s), 0 Refill(s), Start Date: 04/26/14 11:36:00 CDT Start Date: 04/26/14 Stop Date: 08/18/16 Status: Completedpantoprazole 40 mg oral delayed release tablet 1 tab(s), Oral, Daily, # 30 tab(s), 0 Refill(s), Start Date: 09/13/16 8:59:00 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 Start Date: 09/13/16 Status: OrderedPercocet 5/325 oral tablet 1 tab(s), Oral, q4hr, X 14 days, # 84 tab(s), 0 Refill(s), NADIA Start Date: 04/30/14 Stop Date: 05/14/14 Status: CompletedPrevacid 0 Refill(s) Start Date: 01/15/14 Stop Date: 04/26/14 Status: DiscontinuedtraMADol 50 mg oral tablet 1 tab(s), Oral, BID, # 60 tab(s), 0 Refill(s), Start Date: 09/13/16 9:25:00 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 , called to pharmacy (Rx) Start Date: 09/13/16 Status: OrderedTylenol 8 HR Arthritis Pain 650 mg oral tablet, extended release 2 tab(s), Oral, BID, 0 Refill(s), Start Date: 09/13/16 9:23:00 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 Start Date: 09/13/16 Status: Orderedvenlafaxine 225 mg [...] 1 tablet, Oral, Start Date: 08/22/14 15:00:00 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 Start Date: 08/22/14 Status: Ordered Results No data available for this section Immunizations Vaccine Date Refusal Reason pneumococcal 23-polyvalent vaccine 05/15/03 Procedures Procedure Date Related Diagnosis Body Site Arthroscopy Knee (Left)1 09/20/16 Sleeve Gastrectomy (SCIP)2 07/17/14 Repair Achilles Tendon (Right, Heel R)3 04/30/14 Lreft knee arthroscopy4 1999 Appendectomy 1984 Cholecystectomy 1984 Tonsillectomy and adenoidectomy 1971 1auto-populated from documented surgical [id number] from documented surgical [id number] from documented surgical [id number] left Social History No data available for this section Assessment and Plan No data available for this section
--- OUTSIDE RECORDS SUMMARY | 2017-02-18 11:31 | XMS REPORT | Summary of Care ---
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 Start Date: 07/10/14 Stop Date: 08/18/16 Status: [...] Refill(s), Start Date: 05/27/16 15:56:00 CDT, Pharmacy: [facility] [id number] Special Instructions: with food Start Date: 05/27/16 [...] cap(s), 0 Refill(s), Start Date: 09/13/16 9:00:00 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 Special Instructions: do not crush or chew [...] cap(s), 1 Refill(s), Start Date: 08/18/16 15:25:00 CHIEF NUCLEAR MEDICINE 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 , Pharmacy: [facility] [id number] Start Date: 08/18/16 Stop Date: 10/18/16 Status: Completedgabapentin 300 mg oral capsule 1 cap(s), Oral, HS, # 30 cap(s), 2 Refill(s), Start Date: 10/18/16 8:26:30 CDT, Pharmacy: [facility] [id number] Start Date: 10/18/16 Status: Orderedibuprofen 800 mg oral tablet 1 tab(s), Oral, TID, # 90 tab(s), 0 Refill(s), Pharmacy: [facility] [place] [id number] Start Date: 05/08/14 Stop Date: 07/19/14 Status: Discontinuedibuprofen 800 mg oral tablet 1 tab(s), Oral, q8hr interval, # 60 tab(s), 0 Refill(s), Start Date: 01/27/15 8: 52:07 CDT, Pharmacy: [place] [id number] Start Date: 01/27/15 Stop Date: 08/18/16 Status: Completedibuprofen 800 mg oral tablet 1 tab(s), Oral, q8hr interval, # 60 tab(s), 0 Refill(s), Start Date: 09/09/14 7: 40:00 CHIEF NUCLEAR MEDICINE 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, Pharmacy: [place] [id number] Start Date: 09/09/14 Stop Date: 01/27/15 Status: [...] q12hr, # 6 cap(s), 0 Refill(s), Pharmacy: [facility] [place] [id number] Start Date: 04/30/14 Stop Date: 05/15/14 Status: CompletedLORazepam 0.5 mg oral tablet 1 tab(s), Oral, TID, 0 Refill(s) Start Date: 01/15/14 Stop Date: 04/26/14 Status: DiscontinuedMultiple Vitamins oral capsule 1 cap(s), Oral, BID, Start Date: 08/22/14 15:01:00 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 NUCLEAR MEDICINE 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 Start Date: 1/22/15 Status: OrderedNitro-Dur 0.1 mg/hr transdermal film, extended [...] 0 Refill(s), Start Date : 07/19/14 16:24:00 CHIEF NUCLEAR MEDICINE 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 Start Date: 07/19/14 Stop Date: 08/09/14 Status: Completedomeprazole 40 mg oral delayed release capsule 1 cap(s), Oral, HS, # 30 cap(s), 0 Refill(s), Start Date: 04/26/14 11:36:00 CDT Start Date: 04/26/14 Stop Date: 08/18/16 Status: Completedpantoprazole 40 mg oral delayed release tablet 1 tab(s), Oral, Daily, # 30 tab(s), 0 Refill(s), Start Date: 09/13/16 8:59:00 CHIEF NUCLEAR MEDICINE 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 Start Date: 09/13/16 Status: OrderedPercocet 5/325 oral [...] tab(s), 0 Refill(s), Start Date: 09/13/16 9:25:00 CHIEF NUCLEAR MEDICINE 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 , called to pharmacy (Rx) Start Date: 09/13/16 Stop Date: 11/09/16 Status: CompletedtraMADol 50 mg oral tablet 1 tab(s), Oral, BID, # 60 tab(s), 0 Refill(s), Start Date: 11/09/16 11:41:49 CDT , called to pharmacy (Rx) Start Date: 11/09/16 Status: OrderedTylenol 8 HR Arthritis Pain 650 mg oral tablet, extended release 2 tab(s), Oral, BID, 0 Refill(s), Start Date: 09/13/16 9:23:00 CHIEF NUCLEAR MEDICINE 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 Start Date: 09/13/16 Status: Orderedvenlafaxine 225 mg [...] 1 tablet, Oral, Start Date: 08/22/14 15:00:00 CHIEF NUCLEAR MEDICINE 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 Start Date: 08/22/14 Status: Ordered Results No data available for this section Immunizations Vaccine Date Refusal Reason pneumococcal 23-polyvalent vaccine 05/15/03 Procedures Procedure Date Related Diagnosis Body Site Arthroscopy Knee (Left)1 09/20/16 Sleeve Gastrectomy (SCIP)2 07/17/14 Repair Achilles Tendon (Right, Heel R)3 04/30/14 Lreft knee arthroscopy4 1999 Appendectomy 1984 Cholecystectomy 1984 Tonsillectomy and adenoidectomy 1971 1auto-populated from documented surgical [id number] from documented surgical [id number] from documented surgical [id number] left Social History No data available for this section Assessment and Plan No data available for this section
--- OUTSIDE RECORDS SUMMARY | 2017-02-18 11:32 | XMS REPORT | Summary of Care ---
:1960 Author Organization [facility] Address [address] [place] [address] Care Team Providers Name Role Phone Mike Palafox Stanford Primary Care Physician Encounter Date(s): 01/28/17 - 01/28/17 [facility], [address] [place], [place] [address] Discharge Diagnosis: Kidney stone on left side Discharge Diagnosis: Atrophic kidney Discharge Disposition: Discharged to Home or Self Care Attending Physician: Johnny Harvey MD Referring Physician: Johnny Harvey MD Vital Signs Most recent to oldest [Reference Range]: 1 Blood Pressure [90-130/60-90 mmHg] 122/78mmHg (01/28/17 10:38 AM) Mean Arterial Pressure, Cuff 93 mmHg (01/28/17 10:38 AM) Most recent to oldest [Reference Range]: 1 Height/Length Measured 158 cm (01/28/17 10:38 AM) Weight Dosing 105.30 kg1 (01/28/17 10:39 AM) Weight Measured 105.3 kg (01/28/17 10:38 AM) BSA Measured 2.04 m2 (01/28/17 10:38 AM) Body Mass Index Measured 42.18 kg/m2 (01/28/17 10:38 AM) 1Result Comment: This result was because the dosing weight was either not entered or it is>30 days old. This result is based off: Weight Measured January 28, 2017 10:38:00 CDT by Mikayla Reyes, Correctional Officer Lieutenant Problem List Condition Effective Dates Status Health [...] headache, 0 Refill(s), Start Date: 07/10/14 11:13:00 MANAGER MANAGING Start Date: 07/10/14 Stop Date: 08/18/16 Status: [...] Refill(s), Start Date: 05/27/16 15:56:00 CDT, Pharmacy: [facility] Special Instructions: with food Start Date: 05/27/16 [...] cap(s), 0 Refill(s), Start Date: 09/13/16 9:00:00 MANAGER MANAGING Special Instructions: do not crush or chew [...] cap(s), 1 Refill(s), Start Date: 08/18/16 15:25:00 MANAGER MANAGING , Pharmacy: [facility] [id number] Start Date: 08/18/16 Stop Date: 10/18/16 Status: Completedgabapentin 300 mg oral capsule 1 cap(s), Oral, HS, # 90 cap(s), 0 Refill(s), Start Date: 12/22/16 16:17:19 CDT , Pharmacy: [facility] [id number] Start Date: 12/22/16 Status: Orderedgabapentin 300 mg oral capsule 1 cap(s), Oral, HS, # 30 cap(s), 2 Refill(s), Start Date: 10/18/16 8:26:30 CDT, Pharmacy: [facility] [id number] Start Date: 10/18/16 Stop Date: 12/22/16 Status: Completedibuprofen 800 mg oral tablet 1 tab(s), Oral, TID, # 90 tab(s), 0 Refill(s), Pharmacy: [facility] [id number] Start Date: 05/08/14 Stop Date: 07/19/14 Status: Discontinuedibuprofen 800 mg oral tablet 1 tab(s), Oral, q8hr interval, # 60 tab(s), 0 Refill(s), Start Date: 01/27/15 8: 52:07 CDT, Pharmacy: [facility] [id number] Start Date: 01/27/15 Stop Date: 1/18/17 Status: Completedibuprofen 800 mg oral tablet 1 tab(s), Oral, q8hr interval, # 60 tab(s), 0 Refill(s), Start Date: 09/09/14 7: 40:00 MANAGER MANAGING, Pharmacy: [facility] [id number] Start Date: 09/09/14 Stop Date: 01/27/15 Status: [...] q12hr, # 6 cap(s), 0 Refill(s), Pharmacy: [facility] [id number] Start Date: 04/30/14 Stop Date: 05/15/14 Status: CompletedLORazepam 0.5 mg oral tablet 1 tab(s), Oral, TID, 0 Refill(s) Start Date: 01/15/14 Stop Date: 04/26/14 Status: DiscontinuedMultiple Vitamins oral capsule 1 cap(s), Oral, BID, Start Date: 08/22/14 15:01:00 MANAGER MANAGING Start Date: 08/22/14 Status: OrderedNitro-Dur 0.1 mg/hr [...] 0 Refill(s), Start Date : 07/19/14 16:24:00 MANAGER MANAGING Start Date: 07/19/14 Stop Date: 08/09/14 Status: Completedomeprazole 40 mg oral delayed release capsule 1 cap(s), Oral, HS, # 30 cap(s), 0 Refill(s), Start Date: 04/26/14 11:36:00 CDT Start Date: 04/26/14 Stop Date: 08/18/16 Status: Completedpantoprazole 40 mg oral delayed release tablet 1 tab(s), Oral, Daily, # 30 tab(s), 0 Refill(s), Start Date: 09/13/16 8:59:00 MANAGER MANAGING Start Date: 09/13/16 Status: OrderedPercocet 5/325 oral [...] called to pharmacy (Rx) Start Date: 12/10/16 Stop Date: 01/18/17 Status: CompletedtraMADol 50 mg oral tablet 1 tab(s), Oral, BID, # 60 tab(s), 0 Refill(s), Start Date: 09/13/16 9:25:00 MANAGER MANAGING , called to pharmacy (Rx) Start Date: 09/13/16 Stop Date: 11/09/16 Status: CompletedtraMADol 50 mg oral tablet 1 tab(s), Oral, BID, # 60 tab(s), 0 Refill(s), Start Date: 01/18/17 14:12:58 CDT , other reason (Rx) Start Date: 01/18/17 Status: OrderedtraMADol 50 mg oral tablet 1 tab(s), Oral, BID, # 60 tab(s), 0 Refill(s), Start Date: 11/09/16 11:41:49 CDT , called to pharmacy (Rx) Start Date: 11/09/16 Stop Date: 12/10/16 Status: CompletedTylenol 8 HR Arthritis Pain 650 mg oral tablet, extended release 2 tab(s), Oral, BID, 0 Refill(s), Start Date: 09/13/16 9:23:00 MANAGER MANAGING Start Date: 09/13/16 Status: Orderedvenlafaxine 225 mg [...] 1 tablet, Oral, Start Date: 08/22/14 15:00:00 MANAGER MANAGING Start Date: 08/22/14 Status: Ordered Results No data available for this section Immunizations Vaccine Date Refusal Reason pneumococcal 23-polyvalent vaccine 05/15/03 Procedures Procedure Date Related Diagnosis Body Site Arthroscopy Knee (Left)1 09/20/16 Sleeve Gastrectomy (SCIP)2 07/17/14 Repair Achilles Tendon (Right, Heel R)3 04/30/14 Lreft knee arthroscopy4 1999 Appendectomy 1984 Cholecystectomy 1984 Tonsillectomy and adenoidectomy 1971 1auto-populated from documented surgical [id number] from documented surgical [id number] from documented surgical [id number] left Social History No data available for this section Assessment and Plan No data available for this section
--- OUTSIDE RECORDS SUMMARY | 2017-02-18 11:32 | XMS REPORT | Summary of Care ---
:1960 Author Organization [facility] Address [address] [place] [address] Care Team Providers Name Role Phone Mike Palafox Stanford Primary Care Physician Encounter Date(s): 01/21/17 - 01/21/17 [facility], [address] [place], [place] [address] Discharge Disposition: 01 Discharged to Home or Self Care Attending Physician: Johnny Harvey MD Referring Physician: Johnny Harvey MD Vital Signs Most recent to oldest [Reference Range]: 1 Temperature Temporal Artery [36.0-38.0 DegC] 36.3 DegC (01/21/17 12:19 PM) Peripheral Pulse Rate [60-100 bpm] 62 bpm (01/21/17 12:19 PM) Blood Pressure [90-130/60-90 mmHg] 130/59mmHg (01/21/17 12:19 PM) Mean Arterial Pressure, Cuff 83 mmHg (01/21/17 12:19 PM) Most recent to oldest [Reference Range]: 1 Height/Length Measured 158 cm (01/21/17 12:19 PM) Weight Dosing 104.00 kg1 (01/21/17 12:23 PM) Weight Measured 104 kg (01/21/17 12:19 PM) BSA Measured 2.03 m2 (01/21/17 12:19 PM) Body Mass Index Measured 41.66 kg/m2 (01/21/17 12:19 PM) 1Result Comment: This result was because the dosing weight was either not entered or it is>30 days old. This result is based off: Weight Measured January 21, 2017 12:19:00 CDT by Calli Spike, RN Problem List Condition Effective Dates Status Health [...] headache, 0 Refill(s), Start Date: 07/10/14 11:13:00 HALFWAY HOUSE COUNSELOR Start Date: 07/10/14 Stop Date: 08/18/16 Status: [...] Refill(s), Start Date: 05/27/16 15:56:00 CDT, Pharmacy: [facility] [place] [id number] Special Instructions: with food Start Date: 05/27/16 [...] cap(s), 0 Refill(s), Start Date: 09/13/16 9:00:00 HALFWAY HOUSE COUNSELOR Special Instructions: do not crush or chew [...] cap(s), 1 Refill(s), Start Date: 08/18/16 15:25:00 HALFWAY HOUSE COUNSELOR , Pharmacy: [id number] Start Date: 08/18/16 Stop Date: 10/18/16 Status: Completedgabapentin 300 mg oral capsule 1 cap(s), Oral, HS, # 90 cap(s), 0 Refill(s), Start Date: 12/22/16 16:17:19 CDT , Pharmacy: [id number] Start Date: 12/22/16 Status: Orderedgabapentin 300 mg oral capsule 1 cap(s), Oral, HS, # 30 cap(s), 2 Refill(s), Start Date: 10/18/16 8:26:30 CDT, Pharmacy: [id number] Start Date: 10/18/16 Stop Date: 12/22/16 Status: Completedibuprofen 800 mg oral tablet 1 tab(s), Oral, TID, # 90 tab(s), 0 Refill(s), Pharmacy: [id number] Start Date: 05/08/14 Stop Date: 07/19/14 Status: Discontinuedibuprofen 800 mg oral tablet 1 tab(s), Oral, q8hr interval, # 60 tab(s), 0 Refill(s), Start Date: 01/27/15 8: 52:07 CDT, Pharmacy: [facility] [id number] Start Date: 01/27/15 Stop Date: 08/18/16 Status: Completedibuprofen 800 mg oral tablet 1 tab(s), Oral, q8hr interval, # 60 tab(s), 0 Refill(s), Start Date: 09/09/14 7: 40:00 HALFWAY HOUSE COUNSELOR, Pharmacy: [place] [id number] Start Date: 09/09/14 Stop Date: 01/27/15 Status: [...] q12hr, # 6 cap(s), 0 Refill(s), Pharmacy: [facility] [id number] Start Date: 04/30/14 Stop Date: 05/15/14 Status: CompletedLORazepam 0.5 mg oral tablet 1 tab(s), Oral, TID, 0 Refill(s) Start Date: 01/15/14 Stop Date: 04/26/14 Status: DiscontinuedMultiple Vitamins oral capsule 1 cap(s), Oral, BID, Start Date: 08/22/14 15:01:00 HALFWAY HOUSE COUNSELOR Start Date: 08/22/14 Status: OrderedNitro-Dur 0.1 mg/hr [...] 0 Refill(s), Start Date : 07/19/14 16:24:00 HALFWAY HOUSE COUNSELOR Start Date: 07/19/14 Stop Date: 08/09/14 Status: Completedomeprazole 40 mg oral delayed release capsule 1 cap(s), Oral, HS, # 30 cap(s), 0 Refill(s), Start Date: 04/26/14 11:36:00 CDT Start Date: 04/26/14 Stop Date: 08/18/16 Status: Completedpantoprazole 40 mg oral delayed release tablet 1 tab(s), Oral, Daily, # 30 tab(s), 0 Refill(s), Start Date: 09/13/16 8:59:00 HALFWAY HOUSE COUNSELOR Start Date: 09/13/16 Status: OrderedPercocet 5/325 oral [...] tab(s), 0 Refill(s), Start Date: 09/13/16 9:25:00 HALFWAY HOUSE COUNSELOR , called to pharmacy (Rx) Start Date: [...] BID, 0 Refill(s), Start Date: 09/13/16 9:23:00 HALFWAY HOUSE COUNSELOR Start Date: 09/13/16 Status: Orderedvenlafaxine 225 mg [...] 1 tablet, Oral, Start Date: 08/22/14 15:00:00 HALFWAY HOUSE COUNSELOR Start Date: 08/22/14 Status: Ordered Results No data available for this section Immunizations Vaccine Date Refusal Reason pneumococcal 23-polyvalent vaccine 05/15/03 Procedures Procedure Date Related Diagnosis Body Site Arthroscopy Knee (Left)1 09/20/16 Sleeve Gastrectomy (SCIP)2 07/17/14 Repair Achilles Tendon (Right, Heel R)3 04/30/14 Lreft knee arthroscopy4 1999 Appendectomy 1984 Cholecystectomy 1985 Tonsillectomy and adenoidectomy 1971 1auto-populated from documented surgical [id number] from documented surgical [id number] from documented surgical [id number] left Social History No data available for this section Assessment and Plan No data available for this section
--- OUTSIDE RECORDS SUMMARY | 2017-02-18 11:32 | XMS REPORT | Summary of Care ---
:1960 Author Organization [facility] Address [address] [place] [address] Care Team Providers Name Role Phone Mike Palafox Primary Care Physician Encounter Date(s): 10/05/16 - 10/05/16 [facility] [address], [address] [place], [place] [address] Discharge Diagnosis: Knee osteoarthritis Discharge Diagnosis: S/P left knee arthroscopy Discharge Disposition: 01 Discharged to Home or Self Care Attending Physician: Hossein Delarosa MD Referring Physician: Hossein Delarosa MD Vital Signs Most recent to oldest [Reference Range]: 1 Peripheral Pulse Rate [60-100 bpm] 76 bpm (10/05/16 11:20 AM) Blood Pressure [90-130/60-90 mmHg] 138/79mmHg *HI* (10/05/16 11:20 AM) Mean Arterial Pressure, Cuff 99 mmHg (10/05/16 11:20 AM) Most recent to oldest [Reference Range]: 1 Height/Length Measured 158 cm (10/05/16 11:20 AM) Weight Dosing 109.00 kg1 (10/05/16 11:21 AM) Weight Measured 109 kg (10/05/16 11:20 AM) BSA Measured 2.07 m2 (10/05/16 11:20 AM) Body Mass Index Measured 43.66 kg/m2 (10/05/16 11:20 AM) 1Result Comment: This result was because the dosing weight was either not entered or it is>30 days old. This result is based off: Weight Measured October 05, 2016 11:20:00 TAX COLLECTOR by Agnes Romero CMA Problem List Condition Effective Dates Status Health Status Informant Benign hypertension(Confirmed) 02/09/08 Active Depressive disorder NEC(Confirmed) Active Long-Term (Current) Use of Other Active Medications(Confirmed) Hypoglycemia(Confirmed) Active ophthalmic migraines(Confirmed) Active Allergies, Adverse Reactions, Alerts Substance Reaction Severity Status sulfa drugs Rash Moderate Active Medications Advil Migraine 400 mg, Oral, q6hr interval, PRN as needed for migraine headache, 0 Refill(s), Start Date: 07/10/14 11:13:00 TAX COLLECTOR Start Date: 07/10/14 Stop Date: 08/18/16 Status: Completedatenolol 50 mg oral tablet 1 tab(s), Oral, Daily, 0 Refill(s), Start Date: 01/15/14 9:57:00 CDT Start Date: 01/15/14 Status: Ordereddiclofenac sodium 75 mg oral delayed release tablet 1 tab(s), Oral, BID, with food, # 60 tab(s), 6 Refill(s), Start Date: 05/27/16 15:56:00 CDT, Pharmacy: [facility] Special Instructions: with food Start Date: 05/27/16 [...] cap(s), 0 Refill(s), Start Date: 09/13/16 9:00:00 TAX COLLECTOR Special Instructions: do not crush or chew [...] cap(s), 1 Refill(s), Start Date: 08/18/16 15:25:00 TAX COLLECTOR , Pharmacy: [facility] [place] [id number] Start Date: 08/18/16 Status: Orderedibuprofen 800 mg oral tablet 1 tab(s), Oral, TID, # 90 tab(s), 0 Refill(s), Pharmacy: [facility] [id number] Start Date: 05/08/14 Stop Date: 07/19/14 Status: Discontinuedibuprofen 800 mg oral tablet 1 tab(s), Oral, q8hr interval, # 60 tab(s), 0 Refill(s), Start Date: 01/27/15 8: 52:07 CDT, Pharmacy: [facility] Start Date: 01/27/15 Stop Date: 08/18/16 Status: Completedibuprofen 800 mg oral tablet 1 tab(s), Oral, q8hr interval, # 60 tab(s), 0 Refill(s), Start Date: 09/09/14 7: 40:00 TAX COLLECTOR, Pharmacy: [facility] Start Date: 09/09/14 Stop Date: 01/27/15 Status: [...] q12hr, # 6 cap(s), 0 Refill(s), Pharmacy: [id number] [facility] [id number] Start Date: 04/30/14 Stop Date: 05/15/14 Status: CompletedLORazepam 0.5 mg oral tablet 1 tab(s), Oral, TID, 0 Refill(s) Start Date: 01/15/14 Stop Date: 04/26/14 Status: DiscontinuedMultiple Vitamins oral capsule 1 cap(s), Oral, BID, Start Date: 08/22/14 15:01:00 TAX COLLECTOR Start Date: 08/22/14 Status: OrderedNitro-Dur 0.1 mg/hr [...] 0 Refill(s), Start Date : 07/19/14 16:24:00 TAX COLLECTOR Start Date: 07/19/14 Stop Date: 08/09/14 Status: Completedomeprazole 40 mg oral delayed release capsule 1 cap(s), Oral, HS, # 30 cap(s), 0 Refill(s), Start Date: 04/26/14 11:36:00 CDT Start Date: 04/26/14 Stop Date: 08/18/16 Status: Completedpantoprazole 40 mg oral delayed release tablet 1 tab(s), Oral, Daily, # 30 tab(s), 0 Refill(s), Start Date: 09/13/16 8:59:00 TAX COLLECTOR Start Date: 09/13/16 Status: OrderedPercocet 5/325 oral tablet 1 tab(s), Oral, q4hr, X 14 days, # 84 tab(s), 0 Refill(s), NADIA Start Date: 04/30/14 Stop Date: 05/14/14 Status: CompletedPrevacid 0 Refill(s) Start Date: 01/15/14 Stop Date: 04/26/14 Status: DiscontinuedtraMADol 50 mg oral tablet 1 tab(s), Oral, BID, # 60 tab(s), 0 Refill(s), Start Date: 09/13/16 9:25:00 TAX COLLECTOR , called to pharmacy (Rx) Start Date: 09/13/16 Status: OrderedTylenol 8 HR Arthritis Pain 650 mg oral tablet, extended release 2 tab(s), Oral, BID, 0 Refill(s), Start Date: 09/13/16 9:23:00 TAX COLLECTOR Start Date: 09/13/16 Status: Orderedvenlafaxine 225 mg [...] 1 tablet, Oral, Start Date: 08/22/14 15:00:00 TAX COLLECTOR Start Date: 08/22/14 Status: Ordered Results No data available for this section Immunizations Vaccine Date Refusal Reason pneumococcal 23-polyvalent vaccine 05/15/03 Procedures Procedure Date Related Diagnosis Body Site Arthroscopy Knee (Left)1 09/20/16 Sleeve Gastrectomy (SCIP)2 07/17/14 Repair Achilles Tendon (Right, Heel R)3 04/30/14 Lreft knee arthroscopy4 1999 Appendectomy 1984 Cholecystectomy 1984 Tonsillectomy and adenoidectomy 1971 1auto-populated from documented surgical [id number] from documented surgical [id number] from documented surgical [id number] left Social History No data available for this section Assessment and Plan No data available for this section
--- OUTSIDE RECORDS SUMMARY | 2017-02-18 11:32 | XMS REPORT | Summary of Care ---
:1960 Author Organization [facility] Care Team Providers Name Role Phone Javy Mike Coyne Primary Care Physician Encounter Date(s): 01/21/17 - 01/21/17 [place] [id number] Discharge Disposition: 01 Discharged to Home or Self Care Attending Physician: Johnny Harvey MD Admitting Physician: Johnny Harvey MD Vital Signs No data available for [...] headache, 0 Refill(s), Start Date: 07/10/14 11:13:00 RELAY MAN Start Date: 07/10/14 Stop Date: 08/18/16 Status: [...] Refill(s), Start Date: 05/27/16 15:56:00 CDT, Pharmacy: [facility] [id number] Special Instructions: with food Start Date: 05/27/16 [...] cap(s), 0 Refill(s), Start Date: 09/13/16 9:00:00 RELAY MAN Special Instructions: do not crush or chew [...] cap(s), 1 Refill(s), Start Date: 08/18/16 15:25:00 RELAY MAN , Pharmacy: [facility] [id number] Start Date: 08/18/16 Stop Date: 10/18/16 Status: Completedgabapentin 300 mg oral capsule 1 cap(s), Oral, HS, # 90 cap(s), 0 Refill(s), Start Date: 12/22/16 16:17:19 CDT , Pharmacy: [facility] [place] [id number] Start Date: 12/22/16 Status: Orderedgabapentin 300 mg oral capsule 1 cap(s), Oral, HS, # 30 cap(s), 2 Refill(s), Start Date: 10/18/16 8:26:30 CDT, Pharmacy: [facility] [place] [address] Start Date: 10/18/16 Stop Date: 12/22/16 Status: Completedibuprofen 800 mg oral tablet 1 tab(s), Oral, TID, # 90 tab(s), 0 Refill(s), Pharmacy: [facility] [place] [address] Start Date: 05/08/14 Stop Date: 07/19/14 Status: Discontinuedibuprofen 800 mg oral tablet 1 tab(s), Oral, q8hr interval, # 60 tab(s), 0 Refill(s), Start Date: 01/27/15 8: 52:07 CDT, Pharmacy: [facility] [place] [id number] Start Date: 01/27/15 Stop Date: 08/18/16 Status: Completedibuprofen 800 mg oral tablet 1 tab(s), Oral, q8hr interval, # 60 tab(s), 0 Refill(s), Start Date: 09/09/14 7: 40:00 RELAY MAN, Pharmacy: [facility] [place] [id number] Start Date: 09/09/14 Stop Date: 01/27/15 Status: [...] 6 cap(s), 0 Refill(s), Pharmacy: [facility] [id number] Start Date: 04/30/14 Stop Date: 05/15/14 Status: CompletedLORazepam 0.5 mg oral tablet 1 tab(s), Oral, TID, 0 Refill(s) Start Date: 01/15/14 Stop Date: 04/26/14 Status: DiscontinuedMultiple Vitamins oral capsule 1 cap(s), Oral, BID, Start Date: 08/22/14 15:01:00 RELAY MAN Start Date: 08/22/14 Status: OrderedNitro-Dur 0.1 mg/hr [...] 0 Refill(s), Start Date : 07/19/14 16:24:00 RELAY MAN Start Date: 07/19/14 Stop Date: 08/09/14 Status: Completedomeprazole 40 mg oral delayed release capsule 1 cap(s), Oral, HS, # 30 cap(s), 0 Refill(s), Start Date: 04/26/14 11:36:00 CDT Start Date: 04/26/14 Stop Date: 08/18/16 Status: Completedpantoprazole 40 mg oral delayed release tablet 1 tab(s), Oral, Daily, # 30 tab(s), 0 Refill(s), Start Date: 09/13/16 8:59:00 RELAY MAN Start Date: 09/13/16 Status: OrderedPercocet 5/325 oral [...] tab(s), 0 Refill(s), Start Date: 09/13/16 9:25:00 RELAY MAN , called to pharmacy (Rx) Start Date: [...] BID, 0 Refill(s), Start Date: 09/13/16 9:23:00 RELAY MAN Start Date: 09/13/16 Status: Orderedvenlafaxine 225 mg [...] 1 tablet, Oral, Start Date: 08/22/14 15:00:00 RELAY MAN Start Date: 08/22/14 Status: Ordered Results Patient Viewable Results Most recent to oldest [Reference Range]: 1 UA Color Straw *NA* (01/21/17 12:25 PM) Urine Clarity Clear *NA* (01/21/17 12:25 PM) Specific [place] [1.000-1.060] 1.005 (01/21/17 12:25 PM) Urine pH [5-8] 6 (01/21/17 12:25 PM) Ketones Negative (01/21/17 12:25 PM) Bilirubin [Negative] Negative (01/21/17 12:25 PM) Urine Protein [Negative] Negative (01/21/17 12:25 PM) Glucose [Negative] Negative (01/21/17 12:25 PM) Urine HGB [Negative] Negative (01/21/17 12:25 PM) Urobilinogen <2.0 (01/21/17 12:25 PM) Nitrite [Negative] Negative (01/21/17 12:25 PM) Leuk Esterase [Negative] Negative (01/21/17 12:25 PM) UA Ascorbic Acid [Negative] Negative (01/21/17 12:25 PM) Urine WBC [0-5] 0-5 (01/21/17 12:25 PM) Urine RBC [0-2] None Seen (01/21/17 12:25 PM) Squamous Epi [0-5] 0-5 (01/21/17 12:25 PM) Mucus Trace (01/21/17 12:25 PM) Immunizations Vaccine Date Refusal Reason pneumococcal 23-polyvalent vaccine 05/15/03 Procedures Procedure Date Related Diagnosis Body Site Arthroscopy Knee (Left)1 09/20/16 Sleeve Gastrectomy (SCIP)2 07/17/14 Repair Achilles Tendon (Right, Heel R)3 04/30/14 Lreft knee arthroscopy4 1999 Appendectomy 1984 Cholecystectomy 1984 Tonsillectomy and adenoidectomy 1971 1auto-populated from documented surgical [id number] from documented surgical [id number] from documented surgical [id number] left Social History No data available for this section Assessment and Plan No data available for this section
--- OUTSIDE RECORDS SUMMARY | 2017-02-18 11:33 | XMS REPORT | Summary of Care ---
:1960 Author Organization [facility] Address [address] [place] [address] Care Team Providers Name Role Phone Mike Palafox Stanford Primary Care Physician Encounter Date(s): 10/21/16 - 10/21/16 [facility], [address] [place], [place] [address] Discharge Diagnosis: Atrophic kidney Discharge Diagnosis: At risk of UTI Discharge Disposition: 01 Discharged to Home or Self Care Attending Physician: Johnny Harvey MD Referring Physician: Johnny Harvey MD Vital Signs Most recent to oldest [Reference Range]: 1 Temperature Temporal Artery [36.0-38.0 DegC] 36.0 DegC (10/21/16 2:18 PM) Peripheral Pulse Rate [60-100 bpm] 83 bpm (10/21/16 2:18 PM) Blood Pressure [90-130/60-90 mmHg] 141/79mmHg *HI* (10/21/16 2:18 PM) Mean Arterial Pressure, Cuff 100 mmHg (10/21/16 2:18 PM) Most recent to oldest [Reference Range]: 1 Height/Length Measured 158 cm (10/21/16 2:18 PM) Weight Dosing 108.00 kg1 (10/21/16 2:31 PM) Weight Measured 108.0 kg (10/21/16 2:18 PM) BSA Measured 2.06 m2 (10/21/16 2:18 PM) Body Mass Index Measured 43.26 kg/m2 (10/21/16 2:18 PM) 1Result Comment: This result was because the dosing weight was either not entered or it is>30 days old. This result is based off: Weight Measured October 21, 2016 14:18:00 CDT by Calli Lala RN Problem List Condition Effective Dates Status Health Status Informant Benign hypertension(Confirmed) 02/09/08 Active Depressive disorder NEC(Confirmed) Active Long-Term (Current) Use of Other Active Medications(Confirmed) Hypoglycemia(Confirmed) Active ophthalmic migraines(Confirmed) Active Allergies, Adverse Reactions, Alerts Substance Reaction Severity Status sulfa drugs Rash Moderate Active Medications Advil Migraine 400 mg, Oral, q6hr interval, PRN as needed for migraine headache, 0 Refill(s), Start Date: 07/10/14 11:13:00 KENNEL TECHNICIAN Start Date: 07/10/14 Stop Date: 08/18/16 Status: [...] Refill(s), Start Date: 05/27/16 15:56:00 CDT, Pharmacy: [facility] [id number] Special Instructions: with food Start Date: 05/27/16 [...] cap(s), 0 Refill(s), Start Date: 09/13/16 9:00:00 KENNEL TECHNICIAN Special Instructions: do not crush or chew [...] cap(s), 1 Refill(s), Start Date: 08/18/16 15:25:00 KENNEL TECHNICIAN , Pharmacy: [id number] Start Date: 08/18/16 Stop Date: 10/18/16 Status: Completedgabapentin 300 mg oral capsule 1 cap(s), Oral, HS, # 30 cap(s), 2 Refill(s), Start Date: 10/18/16 8:26:30 CDT, Pharmacy: [id number] Start Date: 10/18/16 Status: Orderedibuprofen 800 mg oral tablet 1 tab(s), Oral, TID, # 90 tab(s), 0 Refill(s), Pharmacy: [facility] [id number] Start Date: 05/08/14 Stop Date: 07/19/14 Status: Discontinuedibuprofen 800 mg oral tablet 1 tab(s), Oral, q8hr interval, # 60 tab(s), 0 Refill(s), Start Date: 01/27/15 8: 52:07 CDT, Pharmacy: [facility] [id number] Start Date: 01/27/15 Stop Date: 08/18/16 Status: Completedibuprofen 800 mg oral tablet 1 tab(s), Oral, q8hr interval, # 60 tab(s), 0 Refill(s), Start Date: 09/09/14 7: 40:00 KENNEL TECHNICIAN, Pharmacy: [facility] [id number] Start Date: 09/09/14 Stop Date: 01/27/15 Status: [...] q12hr, # 6 cap(s), 0 Refill(s), Pharmacy: [facility] [id number] Start Date: 04/30/14 Stop Date: 05/15/14 Status: CompletedLORazepam 0.5 mg oral tablet 1 tab(s), Oral, TID, 0 Refill(s) Start Date: 01/15/14 Stop Date: 04/26/14 Status: DiscontinuedMultiple Vitamins oral capsule 1 cap(s), Oral, BID, Start Date: 08/22/14 15:01:00 KENNEL TECHNICIAN Start Date: 08/22/14 Status: OrderedNitro-Dur 0.1 mg/hr [...] 0 Refill(s), Start Date : 07/19/14 16:24:00 KENNEL TECHNICIAN Start Date: 07/19/14 Stop Date: 08/09/14 Status: Completedomeprazole 40 mg oral delayed release capsule 1 cap(s), Oral, HS, # 30 cap(s), 0 Refill(s), Start Date: 04/26/14 11:36:00 CDT Start Date: 04/26/14 Stop Date: 08/18/16 Status: Completedpantoprazole 40 mg oral delayed release tablet 1 tab(s), Oral, Daily, # 30 tab(s), 0 Refill(s), Start Date: 09/13/16 8:59:00 KENNEL TECHNICIAN Start Date: 09/13/16 Status: OrderedPercocet 5/325 oral [...] tab(s), 0 Refill(s), Start Date: 09/13/16 9:25:00 KENNEL TECHNICIAN , called to pharmacy (Rx) Start Date: 09/13/16 Status: OrderedTylenol 8 HR Arthritis Pain 650 mg oral tablet, extended release 2 tab(s), Oral, BID, 0 Refill(s), Start Date: 09/13/16 9:23:00 KENNEL TECHNICIAN Start Date: 09/13/16 Status: Orderedvenlafaxine 225 mg [...] 1 tablet, Oral, Start Date: 08/22/14 15:00:00 KENNEL TECHNICIAN Start Date: 08/22/14 Status: Ordered Results Patient Viewable Results Most recent to oldest [Reference Range]: 1 Urine Appearance Urine Dipstick Clear (10/21/16 3:33 PM) Urine Color Urine Dipstick Yellow (10/21/16 3:33 PM) Specific [place] Urine Dipstick 1.005 (10/21/16 3:33 PM) Bilirubin Urine Dipstick Negative (10/21/16 3:33 PM) pH Urine Dipstick 5 (10/21/16 3:33 PM) Urobilinogen Urine Dipstick 0.2 mg/dl (10/21/16 3:33 PM) Blood Urine Dipstick Trace (10/21/16 3:33 PM) Glucose Urine Dipstick Negative (10/21/16 3:33 PM) Ketones Urine Dipstick Negative (10/21/16 3:33 PM) Protein Urine Dipstick Negative (10/21/16 3:33 PM) Nitrite Urine Dipstick Negative (10/21/16 3:33 PM) Leukocytes Urine Dipstick Negative (10/21/16 3:33 PM) Immunizations Vaccine Date Refusal Reason pneumococcal 23-polyvalent vaccine 05/15/03 Procedures Procedure Date Related Diagnosis Body Site Arthroscopy Knee (Left)1 09/20/16 Sleeve Gastrectomy (SCIP)2 07/17/14 Repair Achilles Tendon (Right, Heel R)3 04/30/14 Lreft knee arthroscopy4 1999 Appendectomy 1984 Cholecystectomy 1985 Tonsillectomy and adenoidectomy 1971 1auto-populated from documented surgical [id number] from documented surgical [id number] from documented surgical [id number] left Social History No data available for this section Assessment and Plan No data available for this section
--- OUTSIDE RECORDS SUMMARY | 2017-02-18 11:33 | XMS REPORT | Summary of Care ---
:1960 Author Organization [facility] Address [address] [place] [address] Care Team Providers Name Role Phone Mike Palafox Primary Care Physician Encounter Date(s): 11/11/16 - 11/11/16 [facility] [address], [address] [place], [place] [address] Discharge Disposition: 01 Discharged to Home or Self Care Attending Physician: RUBA Alvarez Referring Physician: RUBA Alvarez Vital Signs Most recent to oldest [Reference Range]: 1 Peripheral Pulse Rate [60-100 bpm] 92 bpm (11/11/16 10:12 AM) Blood Pressure [90-130/60-90 mmHg] 145/86mmHg *HI* (11/11/16 10:12 AM) Mean Arterial Pressure, Cuff 106 mmHg (11/11/16 10:12 AM) Most recent to oldest [Reference Range]: 1 Height/Length Estimated 158 cm (11/11/16 10:12 AM) Weight Estimated 108 kg (11/11/16 10:12 AM) BSA Estimated 2.18 m2 (11/11/16 10:12 AM) Body Mass Index Estimated 43.26 kg/m2 (11/11/16 10:12 AM) Problem List Condition Effective Dates Status [...] headache, 0 Refill(s), Start Date: 07/10/14 11:13:00 PIT WORKER POWER SHOVEL Start Date: 07/10/14 Stop Date: 08/18/16 Status: [...] Refill(s), Start Date: 05/27/16 15:56:00 CDT, Pharmacy: [email or web address] Special Instructions: with food Start [...] cap(s), 0 Refill(s), Start Date: 09/13/16 9:00:00 PIT WORKER POWER SHOVEL Special Instructions: do not crush or chew [...] cap(s), 1 Refill(s), Start Date: 08/18/16 15:25:00 PIT WORKER POWER SHOVEL , [facility] [place] [id number] Start Date: 08/18/16 Stop Date: 10/18/16 Status: Completedgabapentin 300 mg oral capsule 1 cap(s), Oral, HS, # 30 cap(s), 2 Refill(s), Start Date: 10/18/16 8:26:30 CDT, [facility] [place] [address] Start Date: 10/18/16 Status: Orderedibuprofen 800 mg oral tablet 1 tab(s), Oral, TID, # 90 tab(s), 0 Refill(s), Pharmacy: [facility] Start Date: 05/08/14 Stop Date: 07/19/14 Status: Discontinuedibuprofen 800 mg oral tablet 1 tab(s), Oral, q8hr interval, # 60 tab(s), 0 Refill(s), Start Date: 01/27/15 8: 52:07 CDT, Pharmacy: [facility] Start Date: 01/27/15 Stop Date: 08/18/16 Status: Completedibuprofen 800 mg oral tablet 1 tab(s), Oral, q8hr interval, # 60 tab(s), 0 Refill(s), Start Date: 09/09/14 7: 40:00 PIT WORKER POWER SHOVEL, [facility] Start Date: 09/09/14 Stop Date: 01/27/15 Status: [...] q12hr, # 6 cap(s), 0 Refill(s), Pharmacy: [facility] [id number] Start Date: 04/30/14 Stop Date: 05/15/14 Status: CompletedLORazepam 0.5 mg oral tablet 1 tab(s), Oral, TID, 0 Refill(s) Start Date: 01/15/14 Stop Date: 04/26/14 Status: DiscontinuedMultiple Vitamins oral capsule 1 cap(s), Oral, BID, Start Date: 08/22/14 15:01:00 PIT WORKER POWER SHOVEL Start Date: 08/22/14 Status: OrderedNitro-Dur 0.1 mg/hr [...] 0 Refill(s), Start Date : 07/19/14 16:24:00 PIT WORKER POWER SHOVEL Start Date: 07/19/14 Stop Date: 08/09/14 Status: Completedomeprazole 40 mg oral delayed release capsule 1 cap(s), Oral, HS, # 30 cap(s), 0 Refill(s), Start Date: 04/26/14 11:36:00 CDT Start Date: 04/26/14 Stop Date: 08/18/16 Status: Completedpantoprazole 40 mg oral delayed release tablet 1 tab(s), Oral, Daily, # 30 tab(s), 0 Refill(s), Start Date: 09/13/16 8:59:00 PIT WORKER POWER SHOVEL Start Date: 09/13/16 Status: OrderedPercocet 5/325 oral [...] tab(s), 0 Refill(s), Start Date: 09/13/16 9:25:00 PIT WORKER POWER SHOVEL , called to pharmacy (Rx) Start Date: 09/13/16 Stop Date: 11/09/16 Status: CompletedtraMADol 50 mg oral tablet 1 tab(s), Oral, BID, # 60 tab(s), 0 Refill(s), Start Date: 11/09/16 11:41:49 CDT , called to pharmacy (Rx) Start Date: 11/09/16 Status: OrderedTylenol 8 HR Arthritis Pain 650 mg oral tablet, extended release 2 tab(s), Oral, BID, 0 Refill(s), Start Date: 09/13/16 9:23:00 PIT WORKER POWER SHOVEL Start Date: 09/13/16 Status: Orderedvenlafaxine 225 mg [...] 1 tablet, Oral, Start Date: 08/22/14 15:00:00 PIT WORKER POWER SHOVEL Start Date: 08/22/14 Status: Ordered Results No data available for this section Immunizations Vaccine Date Refusal Reason pneumococcal 23-polyvalent vaccine 05/15/03 Procedures Procedure Date Related Diagnosis Body Site Arthroscopy Knee (Left)1 09/20/16 Sleeve Gastrectomy (SCIP)2 07/17/14 Repair Achilles Tendon (Right, Heel R)3 04/30/14 Lreft knee arthroscopy4 1999 Appendectomy 1984 Cholecystectomy 1984 Tonsillectomy and adenoidectomy 1971 1auto-populated from documented surgical [id number] from documented surgical [id number] from documented surgical [id number] left Social History No data available for this section Assessment and Plan No data available for this section
--- OUTSIDE RECORDS SUMMARY | 2017-02-18 11:33 | XMS REPORT | Summary of Care ---
:1960 Author Organization [facility] Address [address] [place] [address] Care Team Providers Name Role Phone Mike Palafox Stanford Primary Care Physician Encounter Date(s): 10/21/16 - 10/21/[address] [address] Discharge Disposition: 01 Discharged to Home or [...] 0 Refill(s), Start Date: 07/10/14 11:13:00 CHIEF ARCHITECT Start Date: 07/10/14 Stop Date: 08/18/16 Status: [...] Refill(s), Start Date: 05/27/16 15:56:00 CDT, Pharmacy: [facility] [id number] Special Instructions: with food Start Date: 05/27/16 [...] 0 Refill(s), Start Date: 09/13/16 9:00:00 CHIEF ARCHITECT Special Instructions: do not crush or chew [...] 1 Refill(s), Start Date: 08/18/16 15:25:00 CHIEF ARCHITECT , Pharmacy: [facility] [id number] Start Date: 08/18/16 Stop Date: 10/18/16 Status: Completedgabapentin 300 mg oral capsule 1 cap(s), Oral, HS, # 30 cap(s), 2 Refill(s), Start Date: 10/18/16 8:26:30 CDT, Pharmacy: [facility] [id number] Start Date: 10/18/16 Status: Orderedibuprofen 800 mg oral tablet 1 tab(s), Oral, TID, # 90 tab(s), 0 Refill(s), Pharmacy: [facility] [place] [id number] Start Date: 05/08/14 Stop Date: 07/19/14 Status: Discontinuedibuprofen 800 mg oral tablet 1 tab(s), Oral, q8hr interval, # 60 tab(s), 0 Refill(s), Start Date: 01/27/15 8: 52:07 CDT, Pharmacy: [place] [id number] Start Date: 01/27/15 Stop Date: 08/18/16 Status: Completedibuprofen 800 mg oral tablet 1 tab(s), Oral, q8hr interval, # 60 tab(s), 0 Refill(s), Start Date: 09/09/14 7: 40:00 CHIEF ARCHITECT, Pharmacy: [facility] [place] [id number] Start Date: 09/09/14 Stop Date: 01/27/15 Status: [...] q12hr, # 6 cap(s), 0 Refill(s), Pharmacy: [facility] [id number] Start Date: 04/30/14 Stop Date: 05/15/14 Status: CompletedLORazepam 0.5 mg oral tablet 1 tab(s), Oral, TID, 0 Refill(s) Start Date: 01/15/14 Stop Date: 04/26/14 Status: DiscontinuedMultiple Vitamins oral capsule 1 cap(s), Oral, BID, Start Date: 08/22/14 15:01:00 CHIEF ARCHITECT Start Date: 08/22/14 Status: OrderedNitro-Dur 0.1 mg/hr [...] Refill(s), Start Date : 07/19/14 16:24:00 CHIEF ARCHITECT Start Date: 07/19/14 Stop Date: 08/09/14 Status: Completedomeprazole 40 mg oral delayed release capsule 1 cap(s), Oral, HS, # 30 cap(s), 0 Refill(s), Start Date: 04/26/14 11:36:00 CDT Start Date: 04/26/14 Stop Date: 08/18/16 Status: Completedpantoprazole 40 mg oral delayed release tablet 1 tab(s), Oral, Daily, # 30 tab(s), 0 Refill(s), Start Date: 09/13/16 8:59:00 CHIEF ARCHITECT Start Date: 09/13/16 Status: OrderedPercocet 5/325 oral [...] 0 Refill(s), Start Date: 09/13/16 9:25:00 CHIEF ARCHITECT , called to pharmacy (Rx) Start Date: 09/13/16 Status: OrderedTylenol 8 HR Arthritis Pain 650 mg oral tablet, extended release 2 tab(s), Oral, BID, 0 Refill(s), Start Date: 09/13/16 9:23:00 CHIEF ARCHITECT Start Date: 09/13/16 Status: Orderedvenlafaxine 225 mg [...] tablet, Oral, Start Date: 08/22/14 15:00:00 CHIEF ARCHITECT Start Date: 08/22/14 Status: Ordered Results Patient Viewable Results Most recent to oldest [Reference Range]: 1 UA Color Yellow *NA* (10/21/16 3:30 PM) Urine Clarity Clear *NA* (10/21/16 3:30 PM) Specific [place] [1.000-1.060] 1.005 (10/21/16 3:30 PM) Urine pH [5-8] 5 (10/21/16 3:30 PM) Ketones Negative (10/21/16 3:30 PM) Bilirubin [Negative] Negative (10/21/16 3:30 PM) Urine Protein [Negative] Negative (10/21/16 3:30 PM) Glucose [Negative] Negative (10/21/16 3:30 PM) Urine HGB [Negative] 1+ *ABN* (10/21/16 3:30 PM) Urobilinogen <2.0 *NA* (10/21/16 3:30 PM) Nitrite [Negative] Negative (10/21/16 3:30 PM) Leuk Esterase [Negative] Negative (10/21/16 3:30 PM) UA Ascorbic Acid [Negative] Negative (10/21/16 3:30 PM) Urine WBC [0-5] 0-5 (10/21/16 3:30 PM) Urine RBC [0-2] None Seen (10/21/16 3:30 PM) Squamous Epi [0-5] 0-5 (10/21/16 3:30 PM) Immunizations Vaccine Date Refusal Reason pneumococcal 23-polyvalent vaccine 05/15/03 Procedures Procedure Date Related Diagnosis Body Site Arthroscopy Knee (Left)1 09/20/16 Sleeve Gastrectomy (SCIP)2 07/17/14 Repair Achilles Tendon (Right, Heel R)3 04/30/14 Lreft knee arthroscopy4 1999 Appendectomy 1984 Cholecystectomy 1984 Tonsillectomy and adenoidectomy 1971 1auto-populated from documented surgical [id number] from documented surgical [id number] from documented surgical [id number] left Social History No data available for this section Assessment and Plan No data available for this section
--- OUTSIDE RECORDS SUMMARY | 2017-02-18 11:33 | XMS REPORT | Summary of Care ---
:1960 Author Organization [facility] Address [address] [place] [address] Care Team Providers Name Role Phone Mike Palafox Primary Care Physician Encounter Date(s): 12/09/16 - 12/09/16 [facility] [address], [address] [place], [place] [address] Discharge Diagnosis: Fibromyalgia Discharge Disposition: 01 Discharged to Home or Self Care Attending Physician: Torsten Maxwell MD Referring Physician: Torsten Maxwell MD Vital Signs Most recent to oldest [Reference Range]: 1 Peripheral Pulse Rate [60-100 bpm] 81 bpm (12/09/16 3:04 PM) Blood Pressure [90-130/60-90 mmHg] 141/85mmHg *HI* (12/09/16 3:04 PM) Mean Arterial Pressure, Cuff 104 mmHg (12/09/16 3:04 PM) Most recent to oldest [Reference Range]: 1 Height/Length Measured 158 cm (12/09/16 3:04 PM) Weight Dosing 108.00 kg1 (12/09/16 3:05 PM) Weight Measured 108 kg (12/09/16 3:04 PM) BSA Measured 2.06 m2 (12/09/16 3:04 PM) Body Mass Index Measured 43.26 kg/m2 (12/09/16 3:04 PM) 1Result Comment: This result was because the dosing weight was either not entered or it is>30 days old. This result is based off: Weight Measured December 09, 2016 15:04:00 CDT by Calli Choe CMA Problem List Condition Effective Dates Status [...] headache, 0 Refill(s), Start Date: 07/10/14 11:13:00 OBSERVATION NURSE Start Date: 07/10/14 Stop Date: 08/18/16 Status: [...] Refill(s), Start Date: 05/27/16 15:56:00 CDT, Pharmacy: [facility] Special Instructions: with food Start Date: [...] cap(s), 0 Refill(s), Start Date: 09/13/16 9:00:00 OBSERVATION NURSE Special Instructions: do not crush or chew [...] cap(s), 1 Refill(s), Start Date: 08/18/16 15:25:00 OBSERVATION NURSE , Pharmacy: [facility] [id number] Start Date: 08/18/16 Stop Date: 10/18/16 Status: Completedgabapentin 300 mg oral capsule 1 cap(s), Oral, HS, # 30 cap(s), 2 Refill(s), Start Date: 10/18/16 8:26:30 CDT, Pharmacy: [facility] [id number] Start Date: 10/18/16 Status: Orderedibuprofen 800 mg oral tablet 1 tab(s), Oral, TID, # 90 tab(s), 0 Refill(s), Pharmacy: [facility] [id number] Start Date: 05/08/14 Stop Date: 07/19/14 Status: Discontinuedibuprofen 800 mg oral tablet 1 tab(s), Oral, q8hr interval, # 60 tab(s), 0 Refill(s), Start Date: 01/27/15 8: 52:07 CDT, Pharmacy: [facility] [id number] Start Date: 01/27/15 Stop Date: 08/18/16 Status: Completedibuprofen 800 mg oral tablet 1 tab(s), Oral, q8hr interval, # 60 tab(s), 0 Refill(s), Start Date: 09/09/14 7: 40:00 OBSERVATION NURSE, Pharmacy: [facility] [id number] Start Date: 09/09/14 Stop Date: 01/27/15 Status: [...] Refill(s), Pharmacy: [facility] [id number] Start Date: 04/30/14 Stop Date: 05/15/14 Status: CompletedLORazepam 0.5 mg oral tablet 1 tab(s), Oral, TID, 0 Refill(s) Start Date: 01/15/14 Stop Date: 04/26/14 Status: DiscontinuedMultiple Vitamins oral capsule 1 cap(s), Oral, BID, Start Date: 08/22/14 15:01:00 OBSERVATION NURSE Start Date: 08/22/14 Status: OrderedNitro-Dur 0.1 mg/hr [...] 0 Refill(s), Start Date : 07/19/14 16:24:00 OBSERVATION NURSE Start Date: 07/19/14 Stop Date: 08/09/14 Status: Completedomeprazole 40 mg oral delayed release capsule 1 cap(s), Oral, HS, # 30 cap(s), 0 Refill(s), Start Date: 04/26/14 11:36:00 CDT Start Date: 04/26/14 Stop Date: 08/18/16 Status: Completedpantoprazole 40 mg oral delayed release tablet 1 tab(s), Oral, Daily, # 30 tab(s), 0 Refill(s), Start Date: 09/13/16 8:59:00 OBSERVATION NURSE Start Date: 09/13/16 Status: OrderedPercocet 5/325 oral [...] tab(s), 0 Refill(s), Start Date: 09/13/16 9:25:00 OBSERVATION NURSE , called to pharmacy (Rx) Start Date: 09/13/16 Stop Date: 11/09/16 Status: CompletedtraMADol 50 mg oral tablet 1 tab(s), Oral, BID, # 60 tab(s), 0 Refill(s), Start Date: 11/09/16 11:41:49 CDT , called to pharmacy (Rx) Start Date: 11/09/16 Status: OrderedTylenol 8 HR Arthritis Pain 650 mg oral tablet, extended release 2 tab(s), Oral, BID, 0 Refill(s), Start Date: 09/13/16 9:23:00 OBSERVATION NURSE Start Date: 09/13/16 Status: Orderedvenlafaxine 225 mg [...] 1 tablet, Oral, Start Date: 08/22/14 15:00:00 OBSERVATION NURSE Start Date: 08/22/14 Status: Ordered Results No data available for this section Immunizations Vaccine Date Refusal Reason pneumococcal 23-polyvalent vaccine 05/15/03 Procedures Procedure Date Related Diagnosis Body Site Arthroscopy Knee (Left)1 09/20/16 Sleeve Gastrectomy (SCIP)2 07/17/14 Repair Achilles Tendon (Right, Heel R)3 04/30/14 Lreft knee arthroscopy4 1999 Appendectomy 1984 Cholecystectomy 1984 Tonsillectomy and adenoidectomy 1971 1auto-populated from documented surgical [id number] from documented surgical [id number] from documented surgical [id number] left Social History No data available for this section Assessment and Plan No data available for this section
[2017-02-18] MEDS ORDERED: PROMETHAZINE HCL 12.5 MG in DEXTROSE 5 % IN WATER 50 ML IV ONE ×2 (14:00)
[2017-02-18] MEDS ORDERED: MORPHINE SULFATE 4 MG/ML SYRG IV ONE (14:30)
[2017-02-18 18:57] VITALS: BP 114/62
== END 2017-02-18 11:27 | disposition home or self-care (01) ==
LOC: AMB 11:26
PROVIDERS: ATTEND Urology
PROC: 0T778DZ Dilation of Left Ureter with Intraluminal Device, Via Natural or Artificial Opening Endoscopic (ICD-10-PCS; 2017-02-18)
PROC: 0TC78ZZ Extirpation of Matter from Left Ureter, Via Natural or Artificial Opening Endoscopic (ICD-10-PCS; principal; 2017-02-18 12:55)
DX: N20.0 Calculus of kidney (principal); I10 Essential (primary) hypertension; F32.9 Major depressive disorder, single episode, unspecified; Z68.41 Body mass index [BMI] 40.0-44.9, adult